=== PATIENT | male | born 1955 | race Caucasian/White ===

== ENCOUNTER 2021-09-23 20:19 | Inpatient (IN) ==
[2021-09-23 21:08] LABS: Basophils # (auto) 0.03 K/uL (0-0.2); Basophils % (auto) 0.3 %; Eosinophils # (auto) 0.08 K/uL (0-0.50); Eosinophils % (auto) 0.8 %; Hematocrit (blood only) 33.1 % (40.1-51.0); Hemoglobin 10.7 g/dl (14.0-18.0); Immature Granulocytes # (auto) 0.05 K/uL (0.00-0.02); Immature Granulocytes % (auto) 0.5 %; Lymphocytes # (auto) 0.86 K/uL (1.2-3.4); Lymphocytes % (auto) 8.8 %; Mean Corpuscular Hemoglobin 30.9 pg (25.0-34.0); Mean Corpuscular Hgb Conc 32.3 g/dL (32.0-36.0); Mean Corpuscular Volume 95.7 fL (80.0-100.0); Mean Platelet Volume 9.7 fL (9.4-12.4); Monocytes # (auto) 1.02 K/uL (0.24-0.82); Monocytes % (auto) 10.4 %; Neutrophils # (auto) 7.73 K/uL (1.4-6.5); Neutrophils % (auto) 79.2 %; Platelet Count 331 K/uL (130-400); RDW Coefficient of Variation 15.1 % (11.5-14.5); RDW Standard Deviation 53.4 fL (36.4-46.3); Red Blood Count 3.46 M/uL (4.63-6.08); White Blood Count 9.77 K/ul (4.8-10.8)
[2021-09-23 21:18] LABS: Troponin I High Sensitivity 3.1 pg/ml (0-20)
[2021-09-23 21:48] LABS: Albumin Globulin Ratio 1.1 (0.9-2); Albumin Level 3.5 gm/dl (3.4-5.0); BUN Creatinine Ratio 13.6 (10-20); Bilirubin,Total 0.5 mg/dl (0.2-1.0); Calcium 9.1 mg/dl (8.5-10.1); Creatinine Clr Calc Pharmacy 91.5 ml/min; Est GFR (African American) 108.9 ml/min; Est GFR (Non-African American) 93.9 ml/min; Globulin 3.1 gm/dl (2.5-4.0); Magnesium 1.7 mg/dl (1.7-2.4); Potassium 3.4 mmol/L (3.5-5.1); Total Protein 6.6 gm/dl (6.0-8.3)
[2021-09-23] MEDS ORDERED: SODIUM CHLORIDE 0.9% 1000ML 500 ML IV ONE (22:17)
[2021-09-23] MEDS ORDERED: SODIUM CHLORIDE 0.9% 1000ML 1,000 ML IV STA (22:17)
[2021-09-23 22:33] LABS: INR 1.1 (0.9-1.1); Prothrombin Time 11.8 Seconds (9.0-12.0)
[2021-09-24] MEDS ORDERED: PANTOprazole 40 MG in SYRINGE 0 ML IV ONE (00:17)
--- NOTE | 2021-09-24 00:28 | Emergency Department Note ---
Impression & Plan Syncope and collapse, Malignant neoplasm of lower third of esophagus, Acute GI bleeding ED Provider Note INFORMANT: Patient ED PROVIDER(S): Srinivas Mancia MD CHIEF COMPLAINT: Syncope PLAN: Disposition: Admitted Condition: Good Outpatient prescription management: none Referral: None MEDICAL DECISION MAKING: Patient presented because of syncopal episode x2. He also had bright red bloody bowel movement. He did not have any pain or significant vagal symptoms prior to the episode. A work-up was initiated. His monitoring did not reveal any gross abnormalities. ECG was unremarkable. Patient had a mild anemia on CBC. Chemistry panel was unremarkable. CT imaging of the head was negative. Patient will need further management in the hospital. He was hydrated and given Proton ix. [facility]. Patient was evaluated in the ER for further management Triage Nursing notes reviewed and agree them. Vital Signs: reviewed and remarkable for no significant abnormalities Differential diagnosis: GI bleed, vasovagal event, dehydration, infection, hypoglycemia, electrolyte abnormalities, cardiac sources, intracerebral event, pulmonary embolism, seizure, toxicologic, neurologic, as well as other pathologies. Diagnostics interpreted by me: ECG: Twelve-lead ECG reveals sinus rhythm at 100 bpm. There is PVCs present. No ST elevation or depression. Cardiac Monitoring: Cardiac monitoring ordered by me: The patient was placed on continuous cardiac monitoring and observed. It revealed a normal sinus rhythm a t 86 beats per minute without ectopy or evidence of dysrhythmia. Imaging studies: Head CT: A noncontrast CT scan of the head was performed and was negative for tumor, fracture, intracranial hemorrhage, or other acute pathology. CT scan of the abdomen pelvis reveals material in the stomach concerning for blood per radiology. No signs of diverticulitis. No inflammatory changes of the bowel. I refer you to the EMR for further details. HPI: The patient is a 66 year old male who presents to the Emergency Room with complaints of syncope x2. This started this evening and is a new problem for the patient. The patient also notes the following associated symptoms, bright red blood per rectum x1 tonight, mild epigastric abdominal pain, and a mild headache in the posterior aspect as he struck his head when he fell. The patient has taken no medication for relieving factors. Current pain is rated as 4/10. Patient has history of esophageal cancer. He noted 1 episode of dark stool several weeks ago but notes normal color bowel movements recently. Pt denies fevers, chills, diaphoresis, visual changes, neck pain, chest pain, breathing difficulties, nausea, vomiting, abdominal pain, back pain, urinary symptoms, numbness, weakness, lymphadenopathy, rash, or other complaints. ROS: See above HPI for pertinent positives & negatives. A total of 10 systems reviewed and were otherwise negative. PAST MEDICAL HISTORY:See Below , esophageal cancer PAST SURGICAL HISTORY:See Below, FAMILY HISTORY:See Below SOCIAL HISTORY:See Below, quit smoking HOME MEDICATIONS:See Below ALLERGIES:See Below VITALS:See Below PHYSICAL EXAMINATION: GENERAL: Awake, alert, well-appearing, in no distress HENT: Normocephalic, small occipital contusion noted. No lacerations. Oropharynx unremarkable. EYES: Normal conjunctiva. Sclera non-icteric. NECK: Inspection normal. Non-tender. Supple. No nuchal rigidity. FROM. No masses. RESPIRATORY: Clear to auscultation. No wheezes. No rales. Normal respiratory effort. CARDIAC: Normal rate. Normal rhythm. No murmurs. No rubs. Extremities warm and well perfused. Pulses equal. No JVD. GI: Soft, non-distended. Minimal epigastric tenderness to palpation. No rebound or guarding. No masses. RECTAL: Deferred. MUSCULOSKELETAL: Atraumatic. Chest examination reveals no tenderness. The back is symmetrical on inspection without obvious abnormality. There is no CVA tenderness to palpation. No joint edema. LOWER EXTREMITIES: Calves are equal size bilaterally and non-tender. No edema. No discoloration. NEURO: Normal sensorium. No sensory or motor deficits noted. SKIN: No rash or jaundice noted. Srinivas Mancia MD Past Med/Surg History Medical History (Updated 09/24/21 @ 00:28 by Srinivas Mancia MD) Allergic rhinitis Benign neoplasm of colon Dyslipidemia Malignant neoplasm of lower third of esophagus Obesity TMJ click Surgical History (Updated 04/05/21 @ 13:23 by Ree Lucas RN) History of esophagogastroduodenoscopy (EGD) Hx of colonoscopy Hx of tonsillectomy Family History (Updated 04/05/21 @ 13:24 by Ree Lucas RN) Brother Prostate cancer Mother Cancer Ovarian Father Heart disease Social History (Updated 04/05/21 @ 13:31 by Ree Lucas RN) Smoking Status: Former smoker Cigarettes Per Day: alternated chewing snuff and cigarettes since age 23; Hx Alcohol Use: No Hx Substance Use: No Preferred Language: Turkmen Communication Ability: Effective Visual Impairment: No Limitations Hearing Ability: Normal 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 Beliefs That Will Affect Care: None marital status: Current Living Situation: Spouse current occupational status: employed 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 Feels Safe at Home: Yes Diet Comment: softer foods, tolerates liquids better during the past year weight has: decreased > 10 lbs Physical Activity Frequency: Does not Exercise Assistive Devices: Glasses Allergies Allergies Allergy/AdvReac Type Severity Reaction Status Date / Time No Known Allergies Allergy Verified 09/23/21 21:53 Home Meds Home Medications Medication Instructions Recorded Confirmed empagliflozin 10 mg tablet 10 mg PO DAILY PRN Hyperglycemia 05/09/21 09/23/21 (Jardiance) multivitamin 1 tab PO DAILY 09/23/21 09/23/21 Results & Data (ED) Vital Signs Vital Signs - 24 hr 09/23/21 20:33 09/23/21 20:52 09/23/21 23:01 Pulse Rate 96 H Pulse Rate [Right Finger] Respiratory Rate 18 16 Respiratory Effort / Characteristics Non-Labored Non-Labored Respiratory Depth Normal Normal Blood Pressure 137/100 Blood Pressure [Right Arm] 137/100 Blood Pressure Mean 112 Blood Pressure Mean [Right Arm] 112 Blood Pressure Position [Right Arm] Pulse Oximetry 100 100 99 Oxygen Delivery Method Room Air Room Air Room Air Sepsis Recent Fever Within 48 Hours No Sepsis New/Unexplained Change in Mental Status No Sepsis Action Taken by Nursing No Action Required 09/23/21 23:01 09/23/21 23:06 09/24/21 01:16 Pulse Rate 84 Pulse Rate [Right Finger] 86 93 H Respiratory Rate 18 17 17 Respiratory Effort / Characteristics Non-Labored Spontaneous Non-Labored Spontaneous Respiratory Depth Normal Normal Blood Pressure Blood Pressure [Right Arm] 127/92 119/74 Blood Pressure Mean Blood Pressure Mean [Right Arm] 103 89 Blood Pressure Position [Right Arm] Sitting Lying Pulse Oximetry 99 98 97 Oxygen Delivery Method Room Air Room Air Room Air Sepsis Recent Fever Within 48 Hours Sepsis New/Unexplained Change in Mental Status Sepsis Action Taken by Nursing Laboratory Data Result diagrams: 09/23/21 20:39 09/23/21 20:39 Lab Results 09/23/21 09/23/21 09/23/21 Range/Units 20:39 20:39 20:39 WBC 9.77 (4.8-10.8) K/ul RBC 3.46 L (4.63-6.08) M/uL Hgb 10.7 L (14.0-18.0) g/dl Hct 33.1 L (40.1-51.0) % MCV 95.7 (80.0-100.0) fL MCH 30.9 (25.0-34.0) pg MCHC 32.3 (32.0-36.0) g/dL RDW Std Deviation 53.4 H (36.4-46.3) fL RDW Coeff of Olimpia 15.1 H (11.5-14.5) % Plt Count 331 (130-400) K/uL MPV 9.7 (9.4-12.4) fL Immature Gran % (Auto) 0.5 % Neut % (Auto) 79.2 % Lymph % (Auto) 8.8 % [place] % (Auto) 10.4 % Eos % (Auto) 0.8 % Baso % (Auto) 0.3 % Neut # (Auto) 7.73 H (1.4-6.5) K/uL Lymph # (Auto) 0.86 L (1.2-3.4) K/uL [place] # (Auto) 1.02 H (0.24-0.82) K/uL Eos # (Auto) 0.08 (0-0.50) K/uL Baso # (Auto) 0.03 (0-0.2) K/uL Immature Gran # (Auto) 0.05 H (0.00-0.02) K/uL PT (9.0-12.0) Seconds INR (0.9-1.1) Sodium 138 (136-145) mmol/L Potassium 3.4 L (3.5-5.1) mmol/L Chloride 103 (98-107) mmol/L Carbon Dioxide 22 (21-32) mmol/L Anion Gap 13 H (3-11) BUN 11 (6-23) mg/dl Creatinine 0.81 (0.6-1.4) mg/dl Est Cr Clr Drug Dosing 91.5 ml/min Est GFR ( Amer) 108.9 ml/min Est GFR (Non-Af Amer) 93.9 ml/min BUN/Creatinine Ratio 13.6 (10-20) Glucose 171 H (70-99(Fasting)) mg/dl Calcium 9.1 (8.5-10.1) mg/dl Magnesium 1.7 (1.7-2.4) mg/dl Total Bilirubin 0.5 (0.2-1.0) mg/dl AST 23 (13-39) U/L ALT 18 (7-52) U/L Alkaline Phosphatase 64 (34-104) U/L Troponin I High Sens 3.1 (0-20) pg/ml Total Protein 6.6 (6.0-8.3) gm/dl Albumin 3.5 (3.4-5.0) gm/dl Globulin 3.1 (2.5-4.0) gm/dl Albumin/Globulin Ratio 1.1 (0.9-2) TSH 2.125 (0.300-4.500) uIu/ml SARS-CoV-2, RNA, NAAT (NEGATIVE) Blood Type Antibody Screen 09/23/21 09/23/21 09/23/21 Range/Units 20:39 20:39 22:23 WBC (4.8-10.8) K/ul RBC (4.63-6.08) M/uL Hgb (14.0-18.0) g/dl Hct (40.1-51.0) % MCV (80.0-100.0) fL MCH (25.0-34.0) pg MCHC (32.0-36.0) g/dL RDW Std Deviation (36.4-46.3) fL RDW Coeff of Olimpia (11.5-14.5) % Plt Count (130-400) K/uL MPV (9.4-12.4) fL Immature Gran % (Auto) % Neut % (Auto) % Lymph % (Auto) % [place] % (Auto) % Eos % (Auto) % Baso % (Auto) % Neut # (Auto) (1.4-6.5) K/uL Lymph # (Auto) (1.2-3.4) K/uL [place] # (Auto) (0.24-0.82) K/uL Eos # (Auto) (0-0.50) K/uL Baso # (Auto) (0-0.2) K/uL Immature Gran # (Auto) (0.00-0.02) K/uL PT 11.8 (9.0-12.0) Seconds INR 1.1 (0.9-1.1) Sodium (136-145) mmol/L Potassium (3.5-5.1) mmol/L Chloride (98-107) mmol/L Carbon Dioxide (21-32) mmol/L Anion Gap (3-11) BUN (6-23) mg/dl Creatinine (0.6-1.4) mg/dl Est Cr Clr Drug Dosing ml/min Est GFR ( Amer) ml/min Est GFR (Non-Af Amer) ml/min BUN/Creatinine Ratio (10-20) Glucose (70-99(Fasting)) mg/dl Calcium (8.5-10.1) mg/dl Magnesium (1.7-2.4) mg/dl Total Bilirubin (0.2-1.0) mg/dl AST (13-39) U/L ALT (7-52) U/L Alkaline Phosphatase (34-104) U/L Troponin I High Sens (0-20) pg/ml Total Protein (6.0-8.3) gm/dl Albumin (3.4-5.0) gm/dl Globulin (2.5-4.0) gm/dl Albumin/Globulin Ratio (0.9-2) TSH (0.300-4.500) uIu/ml SARS-CoV-2, RNA, NAAT NEGATIVE (NEGATIVE) Blood Type A Positive Antibody Screen NEGATIVE Administered Medications Sodium Chloride (Nss 1000ml) 1,000 mls @ 125 mls/hr IV .Q8H STA Stop: 09/24/21 06:16 Last Admin: 09/24/21 00:55 Dose: 125 mls/hr Documented By: CC Discontinued Medications Sodium Chloride (Nss 1000ml) 500 mls @ 999 mls/hr IV .Q31M ONE Stop: 09/23/21 22:47 Last Infusion: 09/24/21 01:13 Dose: 0 mls/hr Documented By: Admin: 09/23/21 22:27 Dose: 999 mls/hr Documented By: MES Pantoprazole Sodium 40 mg/ (Syringe) 10 mls @ 5 mls/min IV NOW ONE Stop: 09/24/21 00:18 Last Admin: 09/24/21 01:12 Dose: Not Given Documented By: CC Pantoprazole Sodium (Protonix Bolus/Drip) 0 mls @ 1 mls/hr IV ONE STA Stop: 09/24/21 00:34 Last Admin: 09/24/21 00:50 Dose: Not Given Documented By: CC Pantoprazole Sodium 80 mg/ (Dextrose) 120 mls @ 400 mls/hr IV NOW ONE Stop: 09/24/21 00:50 Last Admin: 09/24/21 01:06 Dose: 400 mls/hr Documented By: CC Famotidine (Pepcid 20mg Iv Push) 20 mg in 5 mls @ 2.5 mls/min IV NOW STA Stop: 09/24/21 00:40 Last Admin: 09/24/21 01:03 Dose: 2.5 mls/min Documented By: CC Discharge Plan Visit Data Chief Complaint: Syncope Stated Complaint: SYNCOPAL EVENT, DIZZY, WEAKNESS ED Provider: Srinivas Mancia Discharge Problem: Syncope and collapse, Malignant neoplasm of lower third of esophagus, Acute GI bleeding Forms Stand Alone Forms: [employer] Prescriptions Prescriptions: No Action Jardiance 10 mg tablet 10 mg PO DAILY PRN (Reason: Hyperglycemia) Rx Instructions: pt holds for normal blood sugars multivitamin [Multiple Vitamin] Tablet 1 tab PO DAILY Referrals Referrals: Zac Bonilla DO [Primary Care Provider] -
[2021-09-24] MEDS ORDERED: PANTOPRAZOLE BOLUS/DRIP 1 EACH IV STA (00:33)
[2021-09-24] MEDS ORDERED: PANTOprazole 80 MG in DEXTROSE 5% 100 ML IV ONE (00:33)
[2021-09-24] MEDS ORDERED: FAMOTIDINE 20MG IV PUSH 20 MG/5 ML SYR IV STA (00:39)
[2021-09-24] MEDS ORDERED: PANTOprazole 40 MG in DEXTROSE 5% 100 ML IV SCH (01:00)
[2021-09-24 01:40] LABS: Appearance Urine Clear (Clear); Bacteria Urine Automated Negative (Negative); Bilirubin Urine Negative (Negative); Blood Urine Negative (Negative); Color Urine Dark Yellow; Epithelial Cell Urine Auto 20-30 /lpf (0-5); Glucose Urine UA Negative (Negative); Ketones Urine 2+ (Negative); Leukocyte Esterase Urine Negative (Negative); Nitrite Urine Negative (Negative); Protein Urine Trace (Negative); RBC Urine Automated 0-4 /hpf (0-4); Specific Gravity Urine 1.023 (1.000-1.030); Urobilinogen Urine Negative (Negative); pH Urine 5.5 (4.5-7.5)
[2021-09-24] MEDS ORDERED: POTASSIUM CHLORIDE 20 MEQ/15 ML UDC PO STA (02:55)
[2021-09-24] MEDS ORDERED: NITROGLYCERIN SL 0.4 MG/TAB TAB SL PRN (03:34)
[2021-09-24] MEDS ORDERED: SODIUM CHLORIDE 0.9% 1000ML 1,000 ML IV SCH (03:34)
[2021-09-24] MEDS ORDERED: ACETAMINOPHEN 325 MG TAB PO PRN (03:34)
[2021-09-24] MEDS ORDERED: GLUCOSE 10 TAB/TUBE PO PRN (03:45)
[2021-09-24] MEDS ORDERED: DEXTROSE 50% 50 ML SYRINGE IV PRN (03:45)
[2021-09-24] MEDS ORDERED: CARBOHYDRATES FOR HYPOGLYCEMIA PO PRN (03:45)
[2021-09-24] MEDS ORDERED: GLUCAGON FOR INJ 1 MG VIAL IM PRN (03:45)
[2021-09-24] MEDS ORDERED: GLUCOSE 40% GEL 15 GM TUBE PO PRN (03:45)
[2021-09-24 05:23] LABS: Basophils # (auto) 0.02 K/uL (0-0.2); Basophils % (auto) 0.3 %; Eosinophils # (auto) 0.02 K/uL (0-0.50); Eosinophils % (auto) 0.3 %; Hematocrit (blood only) 28.8 % (40.1-51.0); Hemoglobin 9.1 g/dl (14.0-18.0); Immature Granulocytes # (auto) 0.02 K/uL (0.00-0.02); Immature Granulocytes % (auto) 0.3 %; Lymphocytes # (auto) 0.52 K/uL (1.2-3.4); Lymphocytes % (auto) 8.8 %; Mean Corpuscular Hemoglobin 30.3 pg (25.0-34.0); Mean Corpuscular Hgb Conc 31.6 g/dL (32.0-36.0); Mean Platelet Volume 9.5 fL (9.4-12.4); Monocytes # (auto) 0.79 K/uL (0.24-0.82); Monocytes % (auto) 13.3 %; Neutrophils # (auto) 4.55 K/uL (1.4-6.5); Platelet Count 258 K/uL (130-400); RDW Standard Deviation 52.9 fL (36.4-46.3); White Blood Count 5.92 K/ul (4.8-10.8)
[2021-09-24 05:56] LABS: BUN Creatinine Ratio 23.1 (10-20); Calcium 8.6 mg/dl (8.5-10.1); Est GFR (African American) 119.2 ml/min; Est GFR (Non-African American) 102.8 ml/min; Magnesium 1.7 mg/dl (1.7-2.4); Potassium 3.7 mmol/L (3.5-5.1)
--- NOTE | 2021-09-24 06:08 | History and Physical Report ---
DATE OF ADMISSION: 09/24/2021. CHIEF COMPLAINT: Syncope and GI bleed. 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 The patient states he was going to the bathroom, and in the bathroom he felt dizzy and passed out for a few seconds. He came out and laid on the bed and went to bathroom again and he passed out again for brief moments. No confusion. After that, he had an episode of bowel movement when he initially noticed black and red clot, then after that he had a total of three episodes of watery bloody bowel movements, which prompted him to come to the ER. His hemoglobin is stable at 10.7. He says since he was diagnosed of cancer, he has some epigastric discomfort. He feels his stomach is full easily, not able to eat much. Mostly eats soft food. Denies any chest pain, no shortness of breath, no cough, no headache. Once in a while he gets neck pain, once in a while he gets back pain. No blurred visions, no runny nose, no sore throat. Since his diagnosis of cancer, he has difficulty to burp, difficulty to bring mucous out sometimes. Normal bladder movements. No swelling in the legs. Currently, hemodynamically stable. ALLERGIES: No known drug allergies. PAST MEDICAL HISTORY: As mentioned above. PAST SURGICAL HISTORY: Colonoscopy, EGD, EGD with endoscopic ultrasound, humeral fracture repair, knee arthroscopy, removal of nasal polyps. MEDICATIONS: Currently on empagliflozin 10 mg p.o. daily p.r.n. for hyperglycemia, multivitamin tablet daily. FAMILY HISTORY: Significant for brother had prostate cancer, hypertension; mother has ovarian cancer; father had stroke at the age of 69. SOCIAL HISTORY: , former smoker, smoked half pack a day for 6 years, quit in 2016. Currently, not drinking alcohol. Currently, no drug use. REVIEW OF SYSTEMS: As per HPI. Rest of the review of systems is negative. PHYSICAL EXAMINATION: GENERAL: The patient is of moderate build, not in acute distress. VITAL SIGNS: Temperature afebrile, pulse 93, respiratory rate 17, blood pressure 119/74, oxygen 97% on room air. HEENT: Pupils equal, round, and reactive to light. Oral mucosa moist. NECK: No JVD, no neck masses. CARDIOVASCULAR: S1 and S2 heard. Regular rate and rhythm. No murmur, no gallop. RESPIRATORY SYSTEM: Normal AP diameter. No accessory muscle use. No wheezing, no crackles. ABDOMEN: Soft, bowel sounds present. Mild epigastric discomfort. No guarding, no rigidity, no distention. CENTRAL NERVOUS SYSTEM: Cranial nerves II-XII grossly intact, nonfocal. EXTREMITIES: No edema, no erythema. LABORATORY DATA: WBC 9.7, hemoglobin 10.7, hematocrit 33.1, platelets 331. PT 11.8, INR 1.1. Sodium 138, potassium 3.4, chloride 103, bicarbonate 22, BUN 11, creatinine 0.8, serum glucose 171, calcium 9.1, magnesium 1.7, total bilirubin 0.5, AST 23, ALT 18, alkaline phosphatase 64. Troponin 1 high sensitivity 3.1. TSH 2.2. Urinalysis negative. SARS-CoV-2 rapid test negative. IMAGING DATA: CT of the head, preliminary report, no acute findings. CT of the abdomen and pelvis, preliminary report, the stomach is partially distended with hyperdense material suspicious of blood, the bowel loops are nondilated, the appendix is normal. Moderate diverticulosis of sigmoid colon without signs of acute diverticulitis. No acute inflammatory changes seen involving the bowel. Chest x-ray, no acute findings. EKG: Sinus rhythm with occasional PVCs at a rate of 100, no acute ST changes seen. ASSESSMENT AND PLAN: This 66-year-old male presents with syncope and gastrointestinal bleed. 1. Syncope, could be from the gastrointestinal bleed: Will monitor in the tele floor. Will get an echo. . Follow the repeat troponin. When stable we can check orthostatics. Getting fluids. Closely monitor. 2. Gastrointestinal bleed: Blood per rectum has also question of melena and also CAT scan shows possible blood in the stomach, History of distal esophageal cancer: Status post radiation and chemo. ER started on Protonix today, which will be continued. Hemoglobin is stable at 10.7. Will follow H and H q. 6 hours. Blood consent obtained, n.p.o., IV fluids, GI consult in a.m. 3.. History of distal esophageal adenocarcinoma, status post chemoradiation: Further management as per hem/onc. 4. Diabetes: On empagliflozin as needed. Will place on insulin sliding scale. 5. Hypertension: Seems to be on lisinopril as per epic.. Will monitor the blood pressure. 6. Deep venous thrombosis prophylaxis: Sequential compression devices for now. DISPOSITION: Closely monitor in the tele floor. Level 1 full code. Expect to discharge home and follow up with family doctor. Job ID: [id number] [facility] CENTERSukhwinder
[2021-09-24] MEDS: PANTOprazole 40 MG in DEXTROSE 5% 100 ML IV SCH ×4 (06:25→23:31)
--- NOTE | 2021-09-24 07:07 | XRay Report ---
SINGLE VIEW CHEST CLINICAL HISTORY: Syncope. FINDINGS: 2 AP, portable, upright chest radiographs are correlated with PET/CT dated 03/23/2021. The c ardiomediastinal silhouette is unremarkable noting atherosclerotic calcification of the thoracic aort a. The lungs and pleural spaces are clear. No pneumothorax is seen. The skeletal structures appear os teopenic. The bony thorax is grossly intact. IMPRESSION: No active disease in the chest. ACT 112: Negative or not required by law. Electronically signed by: Peter Noel M.D. 09/24/2021 7:06 AM
--- NOTE | 2021-09-24 07:11 | CT Scan Report ---
HEAD CT NONCONTRAST CT DOSE: HISTORY: fall TECHNIQUE: Multiaxial CT images of the head were performed without the use of intravenous contrast. A utomated exposure control was utilized for this study. A dose lowering technique was utilized adheri ng to the principles of ALARA. Comparison: None. Findings: The paranasal sinuses and mastoid air cells are clear. The calvarium and skull base are int act. The ventricles and sulci are within normal limits. There is no mass, hematoma, midline shift, or acute infarct. Impression: No acute intracranial abnormality. ACT 112: Negative or not required by law. Electronically signed by: Naresh Villalpando M.D. 09/24/2021 7:10 AM
--- NOTE | 2021-09-24 08:11 | CT Scan Report ---
CT SCAN OF THE ABDOMEN AND PELVIS WITHOUT IV CONTRAST CLINICAL HISTORY: Syncope. GI bleeding. History of esophageal cancer. COMPARISON STUDY: PET/CT dated 03/23/2021. TECHNIQUE: CT scan of the abdomen and pelvis is performed from the lung bases to the proximal femora. Images are reviewed in the axial, sagittal, and coronal planes. IV contrast was not administered for this examination. Note that the examination is suboptimal without oral and IV contrast. A dose lower ing technique was utilized adhering to the principles of ALARA. CT DOSE: 1042.27 mGy.cm FINDINGS: Lung bases: The heart is normal in size and without pericardial effusion. The lung bases are clear no ting dependent scarring/atelectasis. There is a small to moderate hiatal hernia. There is wall thicke elizabeth with surrounding infiltration identified at the gastroesophageal junction, possibly correspondin g to the patient's reported history of esophageal cancer. Liver: The unenhanced liver is normal in size, contour, and attenuation. There is no intrahepatic kathy iary ductal dilatation. There are at least 3 low attenuation hepatic lesions measure up to 2.5 cm. Th eliot were not seen on 03/23/2021 and are highly suspicious for metastatic disease. These are best seen on axial images #67, #91 common and #136. Gallbladder: Unremarkable. Spleen: Normal in size and attenuation. Pancreas: The unenhanced pancreas is moderately atrophic. Mild infiltration and fluid is seen adjacen t to the pancreatic body and tail. Adrenal glands: Unremarkable. Kidneys: The unenhanced kidneys are normal in size and without hydronephrosis. There are no renal janessa culi identified. There is no evidence of contour deforming renal mass lesion. Abdominal vasculature: The abdominal aorta is normal in course and caliber noting mild to moderate at herosclerotic calcification. Bowel: Hyperdense material distends the stomach, likely resenting blood clots. The gastric wall appea rs thickened and there is mild perigastric inflammation. There is moderate sigmoid diverticulosis wit hout CT evidence of acute diverticulitis. No bowel obstruction is seen. The appendix is well-visuali zed and normal. Peritoneum: Trace free fluid is noted in the pelvis. No intraperitoneal free air is identified. Lymphadenopathy: There are likely mildly enlarged gastric hepatic lymph nodes which measure up to 11 mm in short axis is difficult to assess due to surrounding inflammation and lack of IV contrast. Pelvic viscera: The prostate gland is mildly enlarged and heterogeneous. The bladder is normal as vis ualized. Skeletal structures: The skeletal structures are osteopenic. There is mild lumbosacral spondylosis. N o lytic or blastic lesions are seen. IMPRESSION: 1. There is wall thickening at the gastroesophageal junction with surrounding inflammation, likely co rresponding to the patient's known esophageal carcinoma. 2. Hyperdense material distends the stomach, typical appearance for blood clots. The gastric wall hina ears mildly thickened and there is mild perigastric infiltration. This could be related to the patien t's esophageal carcinoma. Hemorrhagic gastritis or possibly underlying ulcer disease could also have this appearance. Endoscopy could be considered for further evaluation. 3. Mildly enlarged gastrohepatic nodes likely represent metastatic disease. 4. There are new hepatic lesions which are highly suspicious for metastatic disease. 5. There is mild infiltration and fluid adjacent to the pancreatic body/tail. This may be related to adjacent gastric inflammation. Correlate with serum amylase/lipase levels for evidence of pancreatiti s. 6. Sigmoid diverticulosis without CT evidence of acute diverticulitis. 7. Additional findings as above. ACT 112: Negative or not required by law. Electronically signed by: Petre Noel M.D. 09/24/2021 8:09 AM
[2021-09-24 08:23] LABS: Estimated Average Glucose 105 mg/dl; Hemoglobin A1C 5.3 % (4.5-5.6)
[2021-09-24] MEDS: INSULIN ASPART PER UNIT SC SCH ×5 (08:34→23:44)
--- NOTE | 2021-09-24 09:54 | Anesthesiology Consultation ---
Date of Service September 24, 2021 Assessment & Plan (1) Encounter for pre-operative examination: Chart Review Chart Review: entry level chemist initiated History Surgery Operation Date: 09/24/21 11:00 Proposed Procedures p EGD EMR Sumeet - Alis Fay MD Height/Weight Height: 5 ft 11 in Weight: 70.2 kg Allergies Allergy/AdvReac Type Severity Reaction Status Date / Time No Known Allergies Allergy Verified 09/23/21 21:53 Medications Home Medications Medication Instructions Recorded Confirmed Last Taken empagliflozin 10 mg tablet 10 mg PO DAILY PRN Hyperglycemia 05/09/21 09/23/21 Unknown (Jardiance) multivitamin 1 tab PO DAILY 09/23/21 09/23/21 09/23/21 Active Medications Generic Name Dose Route Start Last Admin Trade Name Freq PRN Reason Stop Dose Admin Pantoprazole Sodium 40 mg/ 100 mls @ 20 mls/hr 09/24/21 06:30 09/24/21 06:25 Dextrose IV 10/24/21 06:29 8 mg/hr Q5H MAXI 20 mls/hr Administration 8 MG/HR Insulin Aspart 0 units 09/24/21 07:30 09/24/21 08:34 Insulin Aspart Per Unit SC 10/24/21 07:29 Not Given ACHS MAXI Past Medical History Medical History Allergic rhinitis Benign neoplasm of colon Dyslipidemia Malignant neoplasm of lower third of esophagus Obesity TMJ click Past Family History Family History Brother Prostate cancer Mother Cancer Ovarian Father Heart disease Past Surgical History Surgical History History of esophagogastroduodenoscopy (EGD) Hx of colonoscopy Hx of tonsillectomy Social History Smoking Status: Former smoker Smoking cigarettes per day: alternated chewing snuff and cigarettes since age 23 Hx Alcohol Use: No Hx Substance Use: No Physical Exam Vital Signs Last Vital Signs Pulse 77 09/24/21 07:00 Resp 18 09/24/21 07:00 BP 115/94 09/24/21 07:00 Pulse Ox 98 09/24/21 07:00 O2 Del Method 09/24/21 04:06 Testing Laboratory Results 09/24/21 04:56 09/24/21 04:56 PT 11.8 Seconds (9.0-12.0) 09/23/21 20:39 INR 1.1 (0.9-1.1) 09/23/21 20:39 Hemoglobin A1c 5.3 % (4.5-5.6) 09/24/21 04:56 Urine Color Dark Yellow 09/24/21 01:00 Urine Appearance Clear (Clear) 09/24/21 01:00 Urine pH 5.5 (4.5-7.5) 09/24/21 01:00 Ur Specific [place] 1.023 (1.000-1.030) 09/24/21 01:00 Urine Protein Trace (Negative) H 09/24/21 01:00 Urine Glucose (UA) Negative (Negative) 09/24/21 01:00 Urine Ketones 2+ (Negative) H 09/24/21 01:00 Urine Nitrite Negative (Negative) 09/24/21 01:00 Ur Leukocyte Esterase Negative (Negative) 09/24/21 01:00 Urine WBC (Auto) 1-5 /hpf (0-5) 09/24/21 01:00 Urine RBC (Auto) 0-4 /hpf (0-4) 09/24/21 01:00 U Hyaline Cast (Auto) 5-10 /lpf (0-5) H 09/24/21 01:00 U Epithel Cells (Auto) 20-30 /lpf (0-5) H 09/24/21 01:00 Urine Bacteria (Auto) Negative (Negative) 09/24/21 01:00 Blood Type A Positive 09/23/21 20:39 Antibody Screen NEGATIVE 09/23/21 20:39 09/24/21 08:29 POC Glucose 95 Electrocardiogram Date: 09/23/21 Sinus rhythm with occasional Premature ventricular complexes, rate 100 bpm Otherwise normal ECG No previous ECGs available Chest X-Ray Date: 09/23/21 Findings: + NAD
--- NOTE | 2021-09-24 10:05 | Gastrointestinal Consultation ---
Date of Consultation September 24, 2021 Assessment & Plan (1) Acute GI bleeding: Likely bleeding from the esophageal tumor. Plan for EGD today. Discussed we may need an esophageal stent to control the bleeding and at the same time help his dysphagia and he agreed. IV PPI for now. Patient was explained in detail regarding risks, benefits, limitations and alternatives of the above endoscopic procedure. Risks of intravenous sedation used for procedure were also explained. Risks include, but not limited to perf oration, bleeding, infection, respiratory distress, cardiac arrest and . Patient is also aware about the possibility of missed lesion. Patient's questions were answered. The patient verbalized understanding the information and agreed to undergo the procedure. (2) Malignant neoplasm of lower third of esophagus: History of Present Illness Reason for Consultation: GI bleeding Attending Physician: Gerry Heller MD History of Present Illness 66 years old male patient with known esophageal adenocarcinoma of the distal esophagus, s/p Radiation and chemotherapy, follows with Oncology, last PET scan in 07/27 showed response to therapy, he saw surgical oncology and planned for esophagectomy however the patient declined, since then he is not on any treatment, presented now with dizziness and rectal bleeding, found to have anemia and CT scan suggestive of active upper GI bleeding, likely from the esophageal malignancy. New liver lesions ? mets. Reports worsening dysphagia, poor PO intake and inability to burp. Denies any fever or chills. Allergies Allergy/AdvReac Type Severity Reaction Status Date / Time No Known Allergies Allergy Verified 09/23/21 21:53 Home Medications Medication Instructions Recorded Confirmed Type empagliflozin 10 mg tablet 10 mg PO DAILY PRN Hyperglycemia 05/09/21 09/23/21 History (Jardiance) multivitamin 1 tab PO DAILY 09/23/21 09/23/21 History Patient History Medical History Allergic rhinitis Benign neoplasm of colon Dyslipidemia Malignant neoplasm of lower third of esophagus Obesity TMJ click Surgical History History of esophagogastroduodenoscopy (EGD) Hx of colonoscopy Hx of tonsillectomy Family History Brother Prostate cancer Mother Cancer Ovarian Father Heart disease Social History (Updated 04/05/21 @ 13:31 by Ree Lucas RN) Smoking Status: Former smoker Cigarettes Per Day: alternated chewing snuff and cigarettes since age 23; Hx Alcohol Use: No Hx Substance Use: No Preferred Language: Turkish Communication Ability: Effective Visual Impairment: No Limitations Hearing Ability: Normal Registered Nurse Cardiac Required: No Beliefs That Will Affect Care: None marital status: Current Living Situation: Spouse current occupational status: employed current occupation: [employer] Feels Safe at Home: Yes Diet Comment: softer foods, tolerates liquids better during the past year weight has: decreased > 10 lbs Physical Activity Frequency: Does not Exercise Assistive Devices: Glasses Review of Systems Eyes: no eye pain and no worsening vision Respiratory: no cough, no dyspnea, no dyspnea on exertion and no wheezing Cardiovascular: no chest pain, no orthopnea, no palpitations and no edema Gastrointestinal: as per Subjective / HPI Musculoskeletal: no stiffness and no myalgia Neurologic: no localized weakness, no paralysis, no tremor(s) and no headache(s) Endocrine: no polydipsia and no polyuria Hematologic / Lymphatic: no easy bleeding and no night sweats Physical Exam Constitutional: + well hydrated, cooperative and comfortable Eyes: PERRL, conjunctivae normal, anicteric sclerae ENMT: external ear and nose normal, oropharynx normal Neck: normal visual inspection and trachea midline Respiratory: normal respiratory effort, lungs clear to auscultation Auscultation: no wheezes Cardiovascular: RRR, no murmur, no edema Gastrointestinal (Abdomen): normal bowel sounds, soft, nontender, no hepatosplenomegaly Musculoskeletal: no cyanosis or clubbing, extremities motor strength 5/5 Skin: no rashes, warm and dry Neurologic: awake; no focal motor deficits Motor/Sensory: no tremor Results & Data ([facility]) Vital Signs (Past 12 Hours) Vital Signs Pulse Pulse Resp BP Pulse Ox O2 Del Method 09/24/21 07:00 77 18 115/94 98 09/24/21 04:06 79 16 130/81 97 Room Air 09/24/21 04:00 81 97 Room Air 09/24/21 03:13 78 17 128/78 98 Room Air 09/24/21 01:16 93 H 17 119/74 97 Room Air 09/23/21 23:06 86 17 127/92 98 Room Air 09/23/21 23:01 84 18 99 Room Air 09/23/21 23:01 99 Room Air Laboratory Results Laboratory Results - last 24 hr 09/23/21 09/23/21 09/23/21 20:39 20:39 20:39 WBC 9.77 RBC 3.46 L Hgb 10.7 L Hct 33.1 L MCV 95.7 MCH 30.9 MCHC 32.3 RDW Std Deviation 53.4 H RDW Coeff of [place] 15.1 H Plt Count 331 MPV 9.7 Immature Gran % (Auto) 0.5 Neut % (Auto) 79.2 Lymph % (Auto) 8.8 [place] % (Auto) 10.4 Eos % (Auto) 0.8 Baso % (Auto) 0.3 Neut # (Auto) 7.73 H Lymph # (Auto) 0.86 L [place] # (Auto) 1.02 H Eos # (Auto) 0.08 Baso # (Auto) 0.03 Immature Gran # (Auto) 0.05 H PT INR Sodium 138 Potassium 3.4 L Chloride 103 Carbon Dioxide 22 Anion Gap 13 H BUN 11 Creatinine 0.81 Est Cr Clr Drug Dosing 91.5 Est GFR ( Amer) 108.9 Est GFR (Non-Af Amer) 93.9 BUN/Creatinine Ratio 13.6 Glucose 171 H POC Glucose Estimat Average Glucose Hemoglobin A1c Calcium 9.1 Magnesium 1.7 Total Bilirubin 0.5 AST 23 ALT 18 Alkaline Phosphatase 64 Troponin I High Sens 3.1 Total Protein 6.6 Albumin 3.5 Globulin 3.1 Albumin/Globulin Ratio 1.1 TSH 2.125 Urine Color Urine Appearance Urine pH Ur Specific [place] Urine Protein Urine Glucose (UA) Urine Ketones Urine Blood Urine Nitrite Urine Bilirubin Urine Urobilinogen Ur Leukocyte Esterase Urine WBC (Auto) Urine RBC (Auto) U Hyaline Cast (Auto) U Epithel Cells (Auto) Urine Bacteria (Auto) SARS-CoV-2, RNA, NAAT Blood Type Antibody Screen 09/23/21 09/23/21 09/23/21 20:39 20:39 22:23 WBC RBC Hgb Hct MCV MCH MCHC RDW Std Deviation RDW Coeff of [place] Plt Count MPV Immature Gran % (Auto) Neut % (Auto) Lymph % (Auto) [place] % (Auto) Eos % (Auto) Baso % (Auto) Neut # (Auto) Lymph # (Auto) [place] # (Auto) Eos # (Auto) Baso # (Auto) Immature Gran # (Auto) PT 11.8 INR 1.1 Sodium Potassium Chloride Carbon Dioxide Anion Gap BUN Creatinine Est Cr Clr Drug Dosing Est GFR ( Amer) Est GFR (Non-Af Amer) BUN/Creatinine Ratio Glucose POC Glucose Estimat Average Glucose Hemoglobin A1c Calcium Magnesium Total Bilirubin AST ALT Alkaline Phosphatase Troponin I High Sens Total Protein Albumin Globulin Albumin/Globulin Ratio TSH Urine Color Urine Appearance Urine pH Ur Specific [place] Urine Protein Urine Glucose (UA) Urine Ketones Urine Blood Urine Nitrite Urine Bilirubin Urine Urobilinogen Ur Leukocyte Esterase Urine WBC (Auto) Urine RBC (Auto) U Hyaline Cast (Auto) U Epithel Cells (Auto) Urine Bacteria (Auto) SARS-CoV-2, RNA, NAAT NEGATIVE Blood Type A Positive Antibody Screen NEGATIVE 09/24/21 09/24/21 09/24/21 01:00 04:56 04:56 WBC 5.92 RBC 3.00 L Hgb 9.1 L Hct 28.8 L MCV 96.0 MCH 30.3 MCHC 31.6 L RDW Std Deviation 52.9 H RDW Coeff of [place] 15.0 H Plt Count 258 MPV 9.5 Immature Gran % (Auto) 0.3 Neut % (Auto) 77.0 Lymph % (Auto) 8.8 [place] % (Auto) 13.3 Eos % (Auto) 0.3 Baso % (Auto) 0.3 Neut # (Auto) 4.55 Lymph # (Auto) 0.52 L [place] # (Auto) 0.79 Eos # (Auto) 0.02 Baso # (Auto) 0.02 Immature Gran # (Auto) 0.02 PT INR Sodium 140 Potassium 3.7 Chloride 109 H Carbon Dioxide 24 Anion Gap 7 BUN 15 Creatinine 0.65 Est Cr Clr Drug Dosing 114.0 Est GFR ( Amer) 119.2 Est GFR (Non-Af Amer) 102.8 BUN/Creatinine Ratio 23.1 H Glucose 103 H POC Glucose Estimat Average Glucose Hemoglobin A1c Calcium 8.6 Magnesium 1.7 Total Bilirubin AST ALT Alkaline Phosphatase Troponin I High Sens Total Protein Albumin Globulin Albumin/Globulin Ratio TSH Urine Color Dark Yellow Urine Appearance Clear Urine pH 5.5 Ur Specific [place] 1.023 Urine Protein Trace H Urine Glucose (UA) Negative Urine Ketones 2+ H Urine Blood Negative Urine Nitrite Negative Urine Bilirubin Negative Urine Urobilinogen Negative Ur Leukocyte Esterase Negative Urine WBC (Auto) 1-5 Urine RBC (Auto) 0-4 U Hyaline Cast (Auto) 5-10 H U Epithel Cells (Auto) 20-30 H Urine Bacteria (Auto) Negative SARS-CoV-2, RNA, NAAT Blood Type Antibody Screen 09/24/21 09/24/21 09/24/21 04:56 08:29 09:23 WBC RBC Hgb Hct MCV MCH MCHC RDW Std Deviation RDW Coeff of [place] Plt Count MPV Immature Gran % (Auto) Neut % (Auto) Lymph % (Auto) [place] % (Auto) Eos % (Auto) Baso % (Auto) Neut # (Auto) Lymph # (Auto) [place] # (Auto) Eos # (Auto) Baso # (Auto) Immature Gran # (Auto) PT INR Sodium Potassium Chloride Carbon Dioxide Anion Gap BUN Creatinine Est Cr Clr Drug Dosing Est GFR ( Amer) Est GFR (Non-Af Amer) BUN/Creatinine Ratio Glucose POC Glucose 95 Estimat Average Glucose 105 Hemoglobin A1c 5.3 Calcium Magnesium Total Bilirubin AST ALT Alkaline Phosphatase Troponin I High Sens 3.7 Total Protein Albumin Globulin Albumin/Globulin Ratio TSH Urine Color Urine Appearance Urine pH Ur Specific [place] Urine Protein Urine Glucose (UA) Urine Ketones Urine Blood Urine Nitrite Urine Bilirubin Urine Urobilinogen Ur Leukocyte Esterase Urine WBC (Auto) Urine RBC (Auto) U Hyaline Cast (Auto) U Epithel Cells (Auto) Urine Bacteria (Auto) SARS-CoV-2, RNA, NAAT Blood Type Antibody Screen
[2021-09-24] MEDS: D5NSS + 20MEQ KCL 20 MEQ/1,000 ML BAG IV SCH ×2 (10:46→21:50)
[2021-09-24] MEDS ORDERED: fentaNYL citrate 100 MCG/2 ML VIAL ONE ×2 (10:47→12:31)
[2021-09-24] MEDS ORDERED: PROPOFOL IV EMULSION 10 MG/ML 20 ML VIAL IV ONE (10:47)
[2021-09-24] MEDS ORDERED: LIDOCAINE 2% 2 ML VIAL/AMP(20MG/ML) INFIL ONE (10:47)
[2021-09-24] MEDS ORDERED: ONDANSETRON INJ 2 MG/ML 2 ML VIAL ONE (10:47)
[2021-09-24] MEDS ORDERED: DEXAMETHASONE SOD INJ 4 MG/ML VIAL ONE (10:47)
[2021-09-24] MEDS ORDERED: MIDAZOLAM HCL 1 MG/ML 2ML VIAL ONE (10:48)
[2021-09-24 11:18] LABS: Hematocrit (blood only) 30.8 % (40.1-51.0); Hemoglobin 9.9 g/dl (14.0-18.0)
[2021-09-24] MEDS ORDERED: ONDANSETRON INJ 2 MG/ML 2 ML VIAL IV PRN (12:09)
[2021-09-24] MEDS ORDERED: ePHEDrine sulfate 50 MG/ML AMP IV PRN (12:09)
[2021-09-24] MEDS ORDERED: ATROPINE SULFATE 0.1 MG/ML 10ML SYR IV PRN (12:09)
--- NOTE | 2021-09-24 12:46 | Operative Report ---
Post Operative Report Pre & Post Diagnosis Operation Date: 09/24/21 11:00 Pre-Op Diagnosis: Acute Gastrointestinal Bleed, History of Esophageal Cancer Post-Op Diagnosis: Acute Gastrointestinal Bleed, History of Esophageal Cancer I identified the patient and participated in the time-out.: Yes Procedure Operation Date: 09/24/21 11:00 Actual Procedures p Esophagogastroduodenoscopy with Placement of Esophageal Stent in OR(Not Applicable) - Alis Fay MD Surgeon Alis Fay MD Circuit Tester None Estimated Blood Loss 0 Findings See Below (Esophageal tumor with bleeding and severe stenosis, treated by esophageal stent placement) Specimens None Description of Procedure EGD I attest to the content of the Intraoperative Record and any orders documented therein. Any exceptions are noted below.
--- NOTE | 2021-09-24 13:09 | GI REPORT ---
Patient Name: René Cordoba Procedure Date: 09/24/2021 11:42 AM Date of : 1955 Admit Type: Inpatient Age: 66 Gender: Male Attending MD: Alis Fay MD Procedure: Upper GI endoscopy Providers: Alis Fay MD Referring MD: Gerry Heller Indications: Dysphagia, Melena Medicines: General Anesthesia Complications: No immediate complications. Estimated Blood Loss: Estimated blood loss: none. Procedure: Pre-Anesthesia Assessment: - Prior to the procedure, a History and Physical was performed, and patient medications, allergies and sensitivities were reviewed. The patient's tolerance of previous anesthesia was reviewed. - The risks and benefits of the procedure and the sedation options and risks were discussed with the patient. All questions were answered and informed consent was obtained. - Patient identification and proposed procedure were verified prior to the procedure by the physician and the nurse. The procedure was verified in the procedure room. - Pre-procedure physical examination revealed no contraindications to sedation. After obtaining informed consent, the endoscope was passed under direct vision. Throughout the procedure, the patient's blood pressure, pulse, and oxygen saturations were monitored continuously. The Endoscope was introduced through the mouth, and advanced to the second part of duodenum. The Endoscope was introduced through the mouth, and advanced to the body of the stomach. The upper GI endoscopy was accomplished without difficulty. The patient tolerated the procedure well. Findings: One severe (stenosis; an endoscope cannot pass) stenosis was found 40 cm from the incisors. This stenosis measured 5 mm (inner diameter) x 1 cm (in length). The stenosis was traversed after downsizing scope. One deeply cratered esophageal ulcer oozing blood from the edges was found at the gastroesophageal junction. The lesion was 20 mm in largest dimension. This was stented with a 20 mm x 12.5 cm Evolution partially covered controlled-release stent with a 25 mm flange under fluoroscopic guidance. I personally interpreted the fluoroscopic images. Two hemostatic clips were successfully placed (MR conditional) on the proximal side to anchor the stent. The stent was intentionally placed slightly deeper in the stomach to allow the fully covered portion of the stent to cover the ulcer area and provide a tamponade effect. Hematin (altered blood/ihyhgy-pvbkmo-[id number] material) was found in the gastric fundus. Impression: - Severe Esophageal stenosis post Radiochemotherapy. - Large esophageal ulcer at the GE junction related to previously known esophageal malignancy with slight blood oozing. A 12.5 cm Partially covered esophageal stent was placed. - Large blood clot seen in the gastric fundus. Recommendation: - Return patient to [facility] for ongoing care. - Clear liquid diet for 2 days, then advance as tolerated to full liquid diet for 2 days then follow post esophageal stent diet. - Use a proton pump inhibitor IV BID for 2 days then PO BID. - Follow an antireflux regimen. - Follow up with oncologist. Alis Fay MD 09/24/2021 1:08:49 PM This report has been signed electronically. Note Initiated On: 09/24/2021 11:42 AM Number of Addenda: 0 I attest to the content of the Intraoperative Record and orders documented therein, exceptions below {[id number]}
[2021-09-24] MEDS: fentaNYL citrate 100 MCG/2 ML VIAL IV PRN ×4 (13:10→13:30)
[2021-09-24] MEDS ORDERED: METOCLOPRAMIDE HCL INJ 5 MG/ML 2 ML VIAL IV ONE (13:31)
[2021-09-24] MEDS ORDERED: METOCLOPRAMIDE HCL INJ 5 MG/ML 2 ML VIAL ONE (13:31)
--- NOTE | 2021-09-24 14:16 | XRay Report ---
SINGLE VIEW CHEST CLINICAL HISTORY: Esophageal stent placement. FINDINGS: An AP, portable, upright chest radiograph is correlated with abdominal CT performed 09/24/19 and PET/CT dated 03/23/2021. An esophageal stent is new from previous. This extends from the lower chest to the proximal stomach. The cardiomediastinal silhouette is unremarkable noting atheroscleroti c calcification of the thoracic aorta. There is mild bibasilar scarring/atelectasis. The lungs and pl eural spaces are otherwise clear. No pneumothorax is seen. The skeletal structures are osteopenic. Th e bony thorax is grossly intact. IMPRESSION: 1. The lungs are clear. 2. An esophageal stent is new from previous. ACT 112: Negative or not required by law. Electronically signed by: Peter Noel M.D. 09/24/2021 2:14 PM
--- NOTE | 2021-09-24 14:33 | Fluoroscopy Report ---
INTRAOPERATIVE RADIOGRAPHS CLINICAL HISTORY: Endoscopy with esophageal stent placement. COMPARISON STUDY: Abdominal CT dated 09/23/2021. Fluoroscopy time: 61 seconds. FINDINGS: 55 spot fluoroscopic images of the upper abdomen are presented. A wire and endoscope are ad vanced into the stomach. An esophageal stent is deployed. This extends from the lower chest to the pr oximal stomach. The stent expands normally. IMPRESSION: Intraoperative images from an esophageal stent placement procedure as above. See operativ e report for detailed findings. Electronically signed by: Peter Noel M.D. 09/24/2021 2:31 PM
--- NOTE | 2021-09-24 14:49 | Anesthesiology Progress Note ---
Date of Service September 24, 2021 Anesthesia Post Procedure Vital Signs Vital Signs: Temp Pulse Pulse Pulse Resp BP BP 09/24/21 13:50 105 H 22 136/92 09/24/21 13:40 140 H 19 170/110 H 09/24/21 13:30 110 H 18 156/100 H 09/24/21 13:20 105 H 17 159/103 H 09/24/21 13:10 120 H 21 159/96 H 09/24/21 13:00 97.2 F L 111 H 21 126/109 H 09/24/21 10:00 80 19 135/84 09/24/21 07:00 77 18 115/94 09/24/21 04:06 79 16 130/81 09/24/21 04:00 81 09/24/21 03:13 78 17 128/78 09/24/21 01:16 93 H 17 119/74 09/23/21 23:06 86 17 127/92 09/23/21 23:01 84 18 09/23/21 23:01 09/23/21 20:52 16 137/100 09/23/21 20:33 96 H 18 137/100 Pulse Ox O2 Del Method 09/24/21 13:50 99 Room Air 09/24/21 13:40 99 Room Air 09/24/21 13:30 99 Room Air 09/24/21 13:20 99 Room Air 09/24/21 13:10 100 Room Air 09/24/21 13:00 100 Room Air 09/24/21 10:00 100 Room Air 09/24/21 07:00 98 09/24/21 04:06 97 Room Air 09/24/21 04:00 97 Room Air 09/24/21 03:13 98 Room Air 09/24/21 01:16 97 Room Air 09/23/21 23:06 98 Room Air 09/23/21 23:01 99 Room Air 09/23/21 23:01 99 Room Air 09/23/21 20:52 100 Room Air 09/23/21 20:33 100 Room Air Pain Intensity Abdomen: Pain Intensity: 2 Throat: Pain Intensity: 3 Transfer of Care Handoff Completed per policy Notes Mental Status: alert / awake / arousable and participated in evaluation Patient Amnestic to Procedure: Yes Nausea / Vomiting: adequately controlled Pain: adequately controlled Airway Patency, RR, SpO2: stable & adequate BP & HR: stable & adequate Hydration State: stable & adequate Anesthetic Complications: no major complications apparent and Pt Satisfied with anesthetic care
[2021-09-24] MEDS: ONDANSETRON INJ 2 MG/ML 2 ML VIAL IV PRN ×2 (15:42→22:07)
[2021-09-24] MEDS ORDERED: ERYTHROMYCIN 250 MG in SODIUM CHLORIDE 0.9% 250 ML IV ONE (16:00)
[2021-09-24] MEDS ORDERED: PROCHLORPERAZINE 5 MG in SYRINGE 4 ML IV ONE (16:00)
[2021-09-24 16:04] LABS: Hematocrit (blood only) 28.8 % (40.1-51.0); Hemoglobin 9.2 g/dl (14.0-18.0); Mean Corpuscular Hemoglobin 30.9 pg (25.0-34.0); Mean Corpuscular Hgb Conc 31.9 g/dL (32.0-36.0); Mean Corpuscular Volume 96.6 fL (80.0-100.0); Mean Platelet Volume 9.4 fL (9.4-12.4); Platelet Count 267 K/uL (130-400); RDW Standard Deviation 53.4 fL (36.4-46.3); Red Blood Count 2.98 M/uL (4.63-6.08); White Blood Count 10.08 K/ul (4.8-10.8)
--- NOTE | 2021-09-24 16:22 | Communication Note ---
Date of Service: September 24, 2021 The patient was seen and examined in telemetry unit. He was admitted today and he is a status post EGD with esophageal stent placement. He will have full progress note tomorrow. Dr Deondre Heller
[2021-09-24 16:27] LABS: Basophils # (auto) 0.02 K/uL (0-0.2); Basophils % (auto) 0.2 %; Eosinophils # (auto) 0.01 K/uL (0-0.50); Eosinophils % (auto) 0.1 %; Immature Granulocytes # (auto) 0.06 K/uL (0.00-0.02); Immature Granulocytes % (auto) 0.6 %; Lymphocytes # (auto) 0.52 K/uL (1.2-3.4); Lymphocytes % (auto) 5.2 %; Monocytes # (auto) 0.14 K/uL (0.24-0.82); Monocytes % (auto) 1.4 %; Neutrophils # (auto) 9.33 K/uL (1.4-6.5); Neutrophils % (auto) 92.5 %
[2021-09-24] MEDS ORDERED: PROMETHAZINE HCL 12.5 MG in SODIUM CHLORIDE 0.9% 50 ML IV STA (19:48)
[2021-09-24] MEDS ORDERED: diphenhydrAMINE 50 MG/ML VIAL IV STA (19:48)
[2021-09-24] MEDS ORDERED: ACETAMINOPHEN 1000 MG/100 ML IV IV STA (21:43)
--- NOTE | 2021-09-24 22:54 | Electrocardiogram Report ---
Test Reason : Blood Pressure : / mmHG Vent. Rate : 100 BPM Atrial Rate : 100 BPM P-R Int : 148 ms QRS Dur : 080 ms QT Int : 368 ms P-R-T Axes : 077 033 045 degrees QTc Int : 474 ms Poor data quality, interpretation may be adversely affected Sinus rhythm with occasional Premature ventricular complexes Otherwise normal ECG No previous ECGs available Confirmed by Meir Pham ([id number]) on 09/24/2021 10:53:45 PM Referred By: REFERRED SELF Confirmed By:Meir Pham
[2021-09-25] MEDS: PANTOprazole 40 MG in DEXTROSE 5% 100 ML IV SCH ×5 (03:37→23:45)
[2021-09-25] MEDS: ONDANSETRON INJ 2 MG/ML 2 ML VIAL IV PRN ×3 (06:02→19:37)
[2021-09-25] MEDS: INSULIN ASPART PER UNIT SC SCH ×4 (06:24→20:40)
[2021-09-25] MEDS ORDERED: ACETAMINOPHEN 1000 MG/100 ML IV IV PRN (07:17)
[2021-09-25] MEDS: ACETAMINOPHEN 1,000 MG/100 ML VIAL IV PRN ×2 (07:27→15:56)
[2021-09-25 07:54] LABS: BUN Creatinine Ratio 21.3 (10-20); Calcium 8.7 mg/dl (8.5-10.1); Creatinine Clr Calc Pharmacy 98.8 ml/min; Est GFR (African American) 112.4 ml/min; Est GFR (Non-African American) 96.9 ml/min; Potassium 3.7 mmol/L (3.5-5.1)
[2021-09-25] MEDS: PROMETHAZINE HCL 12.5 MG in SODIUM CHLORIDE 0.9% 50 ML IV PRN ×2 (08:06→16:15)
[2021-09-25] MEDS: D5NSS + 20MEQ KCL 20 MEQ/1,000 ML BAG IV SCH (08:13)
--- NOTE | 2021-09-25 11:13 | Gastroenterology Progress Note ---
Date of Service September 25, 2021 Assessment & Plan Admission and Anticipated Discharge Date Admission Date: September 24, 2021 Subjective Patient was seen and examined today, feels much better, chest pain is better, no nausea or vomiting today, vomited large blood clot after the procedure yesterday. He still feels that he wants to spit out but denies dysphagia. On exam abdomen is soft. Labs: reviewed H/H stable BUn normal. CXR with stent in good position. Recommend: Continue IV PPI. IV Antiemetics. Trial of clear liquids today. Results & Data ([facility]) Vital Signs (Past 12 Hours) Vital Signs Temp Pulse Pulse Resp BP Pulse Ox O2 Del Method 09/25/21 07:00 105 H 09/25/21 07:33 36.8 C 84 18 152/89 H 99 Room Air 09/25/21 04:19 36.8 C 83 20 158/95 H 92 Room Air 09/25/21 00:09 92 H
[2021-09-25] MEDS ORDERED: Nursing to Pharmacy Communication SCH (11:15)
--- NOTE | 2021-09-25 12:30 | Hospitalist Progress Note ---
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 Admitted with the acute GI bleed Status post EGD with control of acute bleeding Hemoglobin remains stable (3) Malignant neoplasm of lower third of esophagus: Plan: Status post chemoradiation EGD did not show severe stenosis of the lower esophagus Status post stent placement on 09/24/2021 Tolerating clears (4) Type 2 diabetes mellitus: Plan: We will continue with SSI (5) Hypertension: Plan: Blood pressure is controlled Plan DVT prophylaxis SCDs CODE STATUS DNI DNR Admission and Anticipated Discharge Date Admission Date: September 24, 2021 Subjective 09/25/2021 The patient was seen and examined in telemetry unit in presence of the He is a status post esophageal stent placement on 09/24/2021 Complains to have some pain and nausea Denies any other significant symptoms Review of Systems Review of Systems: All systems reviewed and are unremarkable except as noted below Physical Exam Physical Exam: Lying in bed comfortably Constitutional: + ill appearing and average body habitus Eyes: PERRL, conjunctivae normal, anicteric sclerae ENMT: external ear and nose normal, oropharynx normal Neck: trachea midline, no thyromegaly Respiratory: no respiratory distress Auscultation: lungs clear to auscultation bilaterally Cardiovascular: Rate/Rhythm: regular rate and regular rhythm; not tachycardic Heart Sounds: normal S1 and normal S2; no murmur Extremities: no edema Gastrointestinal (Abdomen): Inspection/Auscultation: normal bowel sounds; ab domen not distended Percussion/Palpation: abdomen soft; abdomen nontender Musculoskeletal: No acute arthritis in any joint Neurologic: Alert, awake and oriented x3. Generally weak but no focal sensory or no motor deficit appreciated Lymphatic: no cervical or axillary lymphadenopathy Results & Data Results & Data ([facility]) Vital Signs (Past 12 Hours) Vital Signs Temp Pulse Pulse Resp BP Pulse Ox O2 Del Method 09/25/21 12:13 37.0 C 78 18 151/82 H 98 Room Air 09/25/21 07:00 105 H 09/25/21 07:33 36.8 C 84 18 152/89 H 99 Room Air 09/25/21 04:19 36.8 C 83 20 158/95 H 92 Room Air Laboratory Results Short CBC 09/24/21 Range/Units 15:48 WBC 10.08 (4.8-10.8) K/ul Hgb 9.2 L (14.0-18.0) g/dl Hct 28.8 L (40.1-51.0) % Plt Count 267 (130-400) K/uL BMP 09/25/21 07:09 Sodium 139 Potassium 3.7 Chloride 110 H Carbon Dioxide 21 BUN 16 Creatinine 0.75 Glucose 174 H Calcium 8.7 Medications Administered Current Inpatient Medications Acetaminophen (Acetaminophen 325 Mg Tab) 650 mg PO Q4H PRN PRN Reason: Pain or Fever Stop: 10/24/21 03:33 Dextrose (Dextrose 50% 50 Ml Syringe) 25 - 50 ml IV UD PRN; Protocol PRN Reason: Hypoglycemia Protocol Stop: 10/24/21 03:44 Glucagon (Glucagon For Inj 1 Mg Vial) 1 mg IM UD PRN; Protocol PRN Reason: Hypoglycemia Protocol Stop: 10/24/21 03:44 Glucose (Glucose 40% Gel 15 Gm Tube) 15 - 30 gm PO UD PRN; Protocol PRN Reason: Hypoglycemia Protocol Stop: 10/24/21 03:44 Glucose (Glucose 10 Tab/Tube) 4 - 8 tab PO UD PRN; Protocol PRN Reason: Hypoglycemia Protocol Stop: 10/24/21 03:44 Pantoprazole Sodium 40 mg/ (Dextrose) 100 mls @ 20 mls/hr IV Q5H MAXI Stop: 10/24/21 06:29 Last Admin: 09/25/21 08:29 Dose: 8 mg/hr, 20 mls/hr Potassium Chloride/Dextrose/Sod Cl (D5nss + 20meq Kcl) 20 meq in 1,000 mls @ 100 mls/hr IV .Q10H MAXI; Protocol Stop: 09/25/21 15:59 Last Admin: 09/25/21 08:13 Dose: 100 mls/hr Acetaminophen (Ofirmev) 1,000 mg in 100 mls @ 400 mls/hr IV Q8H PRN; Protocol PRN Reason: Headache Stop: 09/28/21 07:29 Last Infusion: 09/25/21 07:57 Dose: Infused Promethazine HCl 12.5 mg/ (Sodium Chloride) 50.5 mls @ 202 mls/hr IV Q6H PRN PRN Reason: Nausea/Vomiting (second line) Stop: 10/25/21 07:33 Last Infusion: 09/25/21 08:36 Dose: Infused Insulin Aspart (Insulin Aspart Per Unit) 0 units SC ACHS MAXI Stop: 10/25/21 11:29 Last Admin: 09/25/21 12:13 Dose: Not Given Miscellaneous (Carbohydrates For Hypoglycemia ) 15 - 30 gm PO UD PRN PRN Reason: Hypoglycemia Treatment Stop: 10/24/21 03:44 Morphine Sulfate (Morphine Sulfate 2 Mg/Ml Carp) 2 mg IV Q4H PRN PRN Reason: Pain Stop: 10/09/21 12:18 Nitroglycerin (Nitroglycerin Sl 0.4 Mg/Tab Tab) 0.4 mg SL UD PRN PRN Reason: Chest Pain Stop: 10/24/21 03:33 Ondansetron HCl (Ondansetron Inj 2 Mg/Ml 2 Ml Vial) 4 mg IV Q6H PRN PRN Reason: Nausea Stop: 10/24/21 03:33 Last Admin: 09/25/21 12:19 Dose: 4 mg
[2021-09-25] MEDS: MoRPHine SULFATE 2 MG/ML CARP IV PRN ×2 (13:28→19:36)
--- NOTE | 2021-09-25 19:28 | CT Scan Report ---
CT chest diagnostic wo con, CT abdomen wo con CT DOSE: 451.81 mGy.cm HISTORY: Persistent nausea post esophageal stent placement TECHNIQUE: Multiaxial CT images of the chest were performed without contrast. A dose lowering techni que was utilized adhering to the principles of ALARA. COMPARISON: Abdomen and pelvis CT 09/23/2021. FINDINGS: Chest CT: The central airways are patent. No pneumothorax. No focal lung consolidations to suggest pn eumonia. No suspicious pulmonary nodules. Mild right paraesophageal density favors post radiation trey nges. No pneumomediastinum. Interval placement of a esophageal stent which traverses the distal esoph ageal/gastroesophageal mass. This is located within the distal esophagus and proximal stomach. This a ppears patent. No evidence for esophageal perforation. No mediastinal or hilar lymphadenopathy. The h eart is normal in size. No pleural or pericardial effusions. No suspicious lytic or blastic osseous l esions. Abdomen CT: The distal esophageal/gastroesophageal mass is again noted. Mild gastrohepatic lymphadeno derek persists. Hypodense right hepatic lobe lesions likely represent metastatic disease. These are s imilar to the prior CT examination. The unenhanced spleen, adrenal glands, and kidneys are unremarkab le. No pneumoperitoneum. No pneumatosis. No suspicious osseous lesions identified. Mild infiltration is again seen surrounding the pancreatic body and tail. The stomach is decompressed. The visualized l oops of bowel show no wall thickening or obstruction. Normal appendix. No renal stones or hydronephro sis. Normal caliber abdominal aorta. Normal gallbladder. Gastric wall thickening is noted. IMPRESSION: 1. Interval placement of a distal esophageal stent which extends into the proximal stomach. This appe ars in good position and is patent. No evidence for esophageal perforation. This traverses the gastro esophageal mass. 2. Redemonstration of the hepatic hypodense lesions and mild gastrohepatic lymphadenopathy. This lik adwoa represents metastatic disease. 3. Mild infiltration surrounding the body and tail the pancreas, unchanged. This could represent a mi ld acute pancreatitis or reactive to the adjacent gastric wall thickening. Recommend correlation with pancreatic enzymes. ACT 112: Negative or not required by law. Electronically signed by: Naresh Villalpando M.D. 09/25/2021 7:26 PM
--- NOTE | 2021-09-25 21:12 | Electrocardiogram Report ---
Test Reason : Blood Pressure : / mmHG Vent. Rate : 087 BPM Atrial Rate : 087 BPM P-R Int : 150 ms QRS Dur : 084 ms QT Int : 400 ms P-R-T Axes : 070 007 022 degrees QTc Int : 482 ms Sinus rhythm with frequent Premature ventricular complexes Low voltage QRS Prolonged QT When compared with ECG of 23-SEP-2021 20:30, No significant change Confirmed by Meir Pham ([id number]) on 09/25/2021 9:12:11 PM Referred By: REFERRED SELF Confirmed By:Meir Pham
--- NOTE | 2021-09-25 23:19 | Gastroenterology Progress Note ---
Date of Service September 25, 2021 Assessment & Plan Admission and Anticipated Discharge Date Admission Date: September 24, [address] scan reviewed, Esophageal stent in good position, patents and across the stenosis. Otherwise no signs of complications. Continue clear liquids for another day then full liquids for 2 days then follow post stent diet. Need to be on PO PPI BID. PRN antiemetics. Recall GI if needed. Results & Data ([facility]) Vital Signs (Past 12 Hours) Vital Signs Temp Pulse Resp BP Pulse Ox O2 Del Method 09/25/21 23:12 36.5 C 111 H 17 121/81 98 Room Air 09/25/21 19:19 36.8 C 84 16 138/90 98 Room Air 09/25/21 15:48 36.8 C 83 20 150/83 H 98 Room Air 09/25/21 12:13 37.0 C 78 18 151/82 H 98 Room Air
[2021-09-26] MEDS: ONDANSETRON INJ 2 MG/ML 2 ML VIAL IV PRN ×4 (02:21→23:55)
[2021-09-26] MEDS: MoRPHine SULFATE 2 MG/ML CARP IV PRN ×2 (02:22→13:23)
[2021-09-26] MEDS: PANTOprazole 40 MG in DEXTROSE 5% 100 ML IV SCH ×4 (04:45→21:55)
[2021-09-26 06:09] LABS: Basophils # (auto) 0.02 K/uL (0-0.2); Basophils % (auto) 0.2 %; Hemoglobin 8.2 g/dl (14.0-18.0); Immature Granulocytes % (auto) 0.8 %; Lymphocytes # (auto) 0.48 K/uL (1.2-3.4); Lymphocytes % (auto) 3.7 %; Mean Corpuscular Hemoglobin 30.3 pg (25.0-34.0); Mean Corpuscular Hgb Conc 31.5 g/dL (32.0-36.0); Mean Corpuscular Volume 95.9 fL (80.0-100.0); Mean Platelet Volume 9.8 fL (9.4-12.4); Monocytes # (auto) 1.39 K/uL (0.24-0.82); Monocytes % (auto) 10.8 %; Neutrophils # (auto) 10.89 K/uL (1.4-6.5); Neutrophils % (auto) 84.5 %; Platelet Count 255 K/uL (130-400); RDW Coefficient of Variation 15.4 % (11.5-14.5); RDW Standard Deviation 54.2 fL (36.4-46.3); Red Blood Count 2.71 M/uL (4.63-6.08); White Blood Count 12.88 K/ul (4.8-10.8)
[2021-09-26 06:34] LABS: Calcium 8.7 mg/dl (8.5-10.1); Creatinine Clr Calc Pharmacy 108.3 ml/min; Est GFR (African American) 116.3 ml/min; Est GFR (Non-African American) 100.3 ml/min
[2021-09-26] MEDS: INSULIN ASPART PER UNIT SC SCH ×4 (08:20→21:48)
[2021-09-26] MEDS: POTASSIUM CHLORIDE / WTR 10 MEQ/100 ML PLCT IV SCH ×2 (08:55→11:15)
--- NOTE | 2021-09-26 09:09 | Gastroenterology Progress Note ---
Date of Service September 26, 2021 Assessment & Plan (1) Esophageal stenosis: (2) Acute GI bleeding: Plan: Pt is a 66 yo male w esophageal ca s/p XRT and chemo, admitted w GI bleed and dysphagia symptoms. EGD 09/24/2021 showed esophageal ulcer at GE junction, esophageal stenosis, 12.5cm partially covered esophageal stent placed. He is tolerating CL diet well now wo c/o abd pain, n/v, though noted spitting up saliva in emesis bag. Mild esophageal pressure (expected with stent placement). Blood ct stable - Advance to FL diet x 2 days, then follow stent diet (low residue, may print handbook from eso_stent_patient_nutrition.pdf ([employer]) [email or web address] [email or web address]-[email or web address]_stent_patient_[email or web address] ) - PPI PO BID - Recall GI PRN Admission and Anticipated Discharge Date Admission Date: September 24, 2021 Supervising Physician Co-Signing Physician Notes The patient is s/p replacement of an esopahgeal stent and notes liquids are being swallowed without difficulty. Recomendations: Please follow the dietary guidelines placed int the chart Please call with any questions GI to sign off. Subjective Pt seen spitting saliva into emesis bag. States however he feels well, denies any n/v. He is tolerating CL diet well. Some chest pressure but toleraable. No abd pain Review of Systems Review of Systems: All systems reviewed & are unremarkable except as noted in HPI & below Physical Exam Constitutional: WD/WN, vitals as above well groomed, cooperative and comfortable Eyes: PERRL, conjunctivae normal, anicteric sclerae Respiratory: normal respiratory effort, lungs clear to auscultation Cardiovascular: RRR, no murmur, no edema Gastrointestinal (Abdomen): normal bowel sounds, soft, nontender, no hepatosplenomegaly Skin: no rashes, warm and dry no jaundice Neurologic: Motor/Sensory: no asterixis Psychiatric: A+Ox3, euthymic affect Lymphatic: no lymphedema Results & Data ([facility]) Vital Signs (Past 12 Hours) Vital Signs Temp Pulse Pulse Resp BP Pulse Ox O2 Del Method 09/26/21 07:18 85 09/26/21 07:07 36.8 C 84 17 160/86 H 100 Room Air 09/26/21 03:31 36.8 C 83 18 136/67 99 Room Air 09/26/21 00:17 86 09/25/21 23:12 36.5 C 111 H 17 121/81 98 Room Air
--- NOTE | 2021-09-26 10:44 | Electrocardiogram Report ---
Test Reason : Blood Pressure : / mmHG Vent. Rate : 091 BPM Atrial Rate : 091 BPM P-R Int : 136 ms QRS Dur : 084 ms QT Int : 378 ms P-R-T Axes : 076 012 049 degrees QTc Int : 464 ms Sinus rhythm with occasional Premature ventricular complexes Otherwise normal ECG When compared with ECG of 25-SEP-2021 06:21, No significant change was found Confirmed by Galo Henderson ([id number] on 09/26/2021 10:44:45 AM Referred By: REFERRED SELF Confirmed By:Galo Henderson
[2021-09-26] MEDS: ACETAMINOPHEN 1,000 MG/100 ML VIAL IV PRN (10:49)
[2021-09-26] MEDS: PROMETHAZINE HCL 12.5 MG in SODIUM CHLORIDE 0.9% 50 ML IV PRN ×2 (11:13→19:44)
[2021-09-26] MEDS ORDERED: Nursing to Pharmacy Communication SCH (11:30)
--- NOTE | 2021-09-26 14:08 | Hospitalist Progress Note ---
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 Admitted with the acute GI bleed Status post EGD with control of acute bleeding Hemoglobin remains stable-hemoglobin 8.2 as of 09/26/2021 Continue twice daily PPI (3) Malignant neoplasm of lower third of esophagus: Plan: Status post chemoradiation EGD did not show severe stenosis of the lower esophagus Status post stent placement on 09/24/2021 Tolerating clears-diet advance as tolerated Will need stent diet on discharge (4) Type 2 diabetes mellitus: Plan: We will continue with SSI (5) Hypertension: Plan: Blood pressure is controlled Plan DVT prophylaxis SCDs CODE STATUS DNI DNR Admission and Anticipated Discharge Date Admission Date: September 24, 2021 Subjective 09/25/2021 The patient was seen and examined in telemetry unit in presence of the He is a status post esophageal stent placement on 09/24/2021 Complains to have some pain and nausea Denies any other significant symptoms 09/26/2021 The patient was seen and examined in telemetry unit He remained stable but generally very weak and lethargic Continues to have nausea The pain seems to be controlled Review of Systems Review of Systems: All systems reviewed and are unremarkable except as noted below Physical Exam Physical Exam: Lying in bed comfortably Constitutional: + ill appearing and average body habitus Eyes: PERRL, conjunctivae normal, anicteric sclerae ENMT: external ear and nose normal, oropharynx normal Neck: trachea midline, no thyromegaly Respiratory: no respiratory distress Auscultation: lungs clear to auscultation bilaterally Cardiovascular: Rate/Rhythm: regular rate and regular rhythm; not tachycardic Heart Sounds: normal S1 and normal S2; no murmur Extremities: no edema Gastrointestinal (Abdomen): Inspection/Auscultation: normal bowel sounds; abdomen not distended Percussion/Palpation: abdomen soft; abdomen nontender Musculoskeletal: No acute arthritis in any joint Neurologic: Alert, awake and oriented x3. Generally weak but no focal sensory or no motor deficit appreciated Lymphatic: no cervical or axillary lymphadenopathy Results & Data Results & Data ([facility]) Vital Signs (Past 12 Hours) Vital Signs Temp Pulse Pulse Resp BP Pulse Ox O2 Del Method 09/26/21 11:51 36.5 C 87 16 134/71 96 Room Air 09/26/21 07:18 85 09/26/21 07:07 36.8 C 84 17 160/86 H 100 Room Air 09/26/21 03:31 36.8 C 83 18 136/67 99 Room Air Laboratory Results Short CBC 09/26/21 Range/Units 05:38 WBC 12.88 H (4.8-10.8) K/ul Hgb 8.2 L (14.0-18.0) g/dl Hct 26.0 L (40.1-51.0) % Plt Count 255 (130-400) K/uL BMP 09/26/21 05:38 Sodium 142 Potassium 3.0 L Chloride 109 H Carbon Dioxide 26 BUN 9 Creatinine 0.69 Glucose 129 H Calcium 8.7 Medications Administered Current Inpatient Medications Acetaminophen (Acetaminophen 325 Mg Tab) 650 mg PO Q4H PRN PRN Reason: Pain or Fever Stop: 10/24/21 03:33 Dextrose (Dextrose 50% 50 Ml Syringe) 25 - 50 ml IV UD PRN; Protocol PRN Reason: Hypoglycemia Protocol Stop: 10/24/21 03:44 Glucagon (Glucagon For Inj 1 Mg Vial) 1 mg IM UD PRN; Protocol PRN Reason: Hypoglycemia Protocol Stop: 10/24/21 03:44 Glucose (Glucose 40% Gel 15 Gm Tube) 15 - 30 gm PO UD PRN; Protocol PRN Reason: Hypoglycemia Protocol Stop: 10/24/21 03:44 Glucose (Glucose 10 Tab/Tube) 4 - 8 tab PO UD PRN; Protocol PRN Reason: Hypoglycemia Protocol Stop: 10/24/21 03:44 Pantoprazole Sodium 40 mg/ (Dextrose) 100 mls @ 20 mls/hr IV Q5H MAXI Stop: 10/24/21 06:29 Last Admin: 09/26/21 11:19 Dose: 8 mg/hr, 20 mls/hr Acetaminophen (Ofirmev) 1,000 mg in 100 mls @ 400 mls/hr IV Q8H PRN; Protocol PRN Reason: Headache Stop: 09/28/21 07:29 Last Infusion: 09/26/21 11:13 Dose: Infused Promethazine HCl 12.5 mg/ (Sodium Chloride) 50.5 mls @ 202 mls/hr IV Q6H PRN PRN Reason: Nausea/Vomiting (second line) Stop: 10/25/21 07:33 Last Infusion: 09/26/21 11:54 Dose: Infused Insulin Aspart (Insulin Aspart Per Unit) 0 units SC ACHS MAXI Stop: 10/25/21 11:29 Last Admin: 09/26/21 11:24 Dose: Not Given Miscellaneous (Carbohydrates For Hypoglycemia ) 15 - 30 gm PO UD PRN PRN Reason: Hypoglycemia Treatment Stop: 10/24/21 03:44 Morphine Sulfate (Morphine Sulfate 2 Mg/Ml Carp) 2 mg IV Q4H PRN PRN Reason: Pain Stop: 10/09/21 12:18 Last Admin: 09/26/21 13:23 Dose: 2 mg Nitroglycerin (Nitroglycerin Sl 0.4 Mg/Tab Tab) 0.4 mg SL UD PRN PRN Reason: Chest Pain Stop: 10/24/21 03:33 Ondansetron HCl (Ondansetron Inj 2 Mg/Ml 2 Ml Vial) 4 mg IV Q6H PRN PRN Reason: Nausea Stop: 10/24/21 03:33 Last Admin: 09/26/21 08:52 Dose: 4 mg
[2021-09-26] MEDS ORDERED: diphenhydrAMINE 50 MG/ML VIAL IV STA (19:39)
[2021-09-27] MEDS: PROMETHAZINE HCL 12.5 MG in SODIUM CHLORIDE 0.9% 50 ML IV PRN (02:11)
[2021-09-27] MEDS: PANTOprazole 40 MG in DEXTROSE 5% 100 ML IV SCH ×2 (02:32→08:03)
[2021-09-27] MEDS: ONDANSETRON INJ 2 MG/ML 2 ML VIAL IV PRN (04:48)
[2021-09-27] MEDS ORDERED: METOCLOPRAMIDE HCL INJ 5 MG/ML 2 ML VIAL IV PRN (07:45)
[2021-09-27] MEDS: INSULIN ASPART PER UNIT SC SCH ×4 (08:03→20:49)
[2021-09-27 08:19] LABS: Eosinophils # (auto) 0.01 K/uL (0-0.50); Eosinophils % (auto) 0.1 %; Hematocrit (blood only) 26.1 % (40.1-51.0); Hemoglobin 8.4 g/dl (14.0-18.0); Immature Granulocytes # (auto) 0.07 K/uL (0.00-0.02); Immature Granulocytes % (auto) 0.6 %; Lymphocytes % (auto) 6.3 %; Mean Corpuscular Hemoglobin 30.4 pg (25.0-34.0); Mean Corpuscular Hgb Conc 32.2 g/dL (32.0-36.0); Mean Corpuscular Volume 94.6 fL (80.0-100.0); Mean Platelet Volume 9.7 fL (9.4-12.4); Monocytes # (auto) 0.98 K/uL (0.24-0.82); Monocytes % (auto) 8.8 %; Neutrophils # (auto) 9.38 K/uL (1.4-6.5); Neutrophils % (auto) 84.2 %; Platelet Count 260 K/uL (130-400); RDW Coefficient of Variation 15.5 % (11.5-14.5); RDW Standard Deviation 53.2 fL (36.4-46.3); Red Blood Count 2.76 M/uL (4.63-6.08); White Blood Count 11.14 K/ul (4.8-10.8)
[2021-09-27 08:45] LABS: BUN Creatinine Ratio 11.8 (10-20); Calcium 8.9 mg/dl (8.5-10.1); Creatinine Clr Calc Pharmacy 109.9 ml/min; Est GFR (Non-African American) 100.9 ml/min; Potassium 3.2 mmol/L (3.5-5.1)
[2021-09-27 08:47] LABS: Albumin Globulin Ratio 1.1 (0.9-2); Albumin Level 3.2 gm/dl (3.4-5.0); Bilirubin,Total 0.5 mg/dl (0.2-1.0); Globulin 2.8 gm/dl (2.5-4.0)
[2021-09-27] MEDS ORDERED: FOSAPREPITANT DIMEGLUMINE 150 MG in SODIUM CHLORIDE 0.9% 145 ML IV ONE ×2 (08:51→09:15)
--- NOTE | 2021-09-27 08:58 | Gastroenterology Progress Note ---
Date of Service September 27, 2021 Assessment & Plan (1) Esophageal stenosis: (2) Acute GI bleeding: Plan: Pt is a 66 yo male w esophageal ca s/p XRT and chemo, admitted w GI bleed and dysphagia symptoms. EGD 09/24/2021 showed esophageal ulcer at GE junction, esophageal stenosis, 12.5cm partially covered esophageal stent placed. He reported having nausea and refused lunch yesterday. On eval this AM, noted again spitting up in emesis bag, clear saliva. Said he's been nauseated since prior stent was placed. Mild esophageal pressure (expected with stent placement). Blood ct stable - PPI PO BID - Suspect nausea related to his cancer diagnosis. Will try Emend IV x 1 dose today, then may continue prn anti emetics. Suggest also perhaps palliative care consult for symptoms management - CL diet but NPO if n/v continues. If tolerating diet, advance to [place] diet x 2 days, then follow stent diet (low residue, may print handbook from eso_stent_patient_nutrition.pdf ([employer]) [email or web address].[employer]/content/d [email or web address]/general/gastro- specialty/eso_stent_patient_nutrition.pdf ) Admission and Anticipated Discharge Date Admission Date: September 24, 2021 Supervising Physician Co-Signing Physician Notes Yesterday morning the patient had noted that he was doing well without chest discomfort nor nausea. Yesterday afternoon he began to develop worsening symptoms we were asked to see him this morning for further evaluation. He notes that he is swallowing fairly well and does have some nausea today. Recommendations Upper GI series Transition to an oral PPI Give a dose of Emend please. Subjective Re-evaluated pt this AM as he reported having nausea and not wanting much to eat yesterday afternoon. Pt reports having nausea, spitting up clear saliva in emesis bag. He reports having nausea since prior to esophageal stent placement. He drank some clear liquids this AM. Review of Systems Review of Systems: All systems reviewed & are unremarkable except as noted in HPI & below Physical Exam Constitutional: WD/WN, vitals as above well groomed and cooperative Eyes: PERRL, conjunctivae normal, anicteric sclerae Respiratory: normal respiratory effort, lungs clear to auscultation Cardiovascular: RRR, no murmur, no edema Gastrointestinal (Abdomen): normal bowel sounds, soft, nontender, no hepatosplenomegaly Skin: no rashes, warm and dry no jaundice Psychiatric: A+Ox3, euthymic affect Lymphatic: no lymphedema Results & Data ([facility]) Vital Signs (Past 12 Hours) Vital Signs Temp Pulse Pulse Resp BP Pulse Ox O2 Del Method 09/27/21 07:48 36.4 C L 99 H 16 143/78 H 94 09/27/21 07:28 89 09/27/21 04:04 36.7 C 109 H 20 165/85 H 96 Room Air 09/27/21 02:50 96 H 09/26/21 23:54 36.7 C 95 H 20 152/85 H 95 Room Air
[2021-09-27] MEDS ORDERED: PANTOprazole 40 MG TAB PO SCH (09:00)
[2021-09-27] MEDS: PANTOprazole 40 MG in SYRINGE 0 ML IV SCH ×2 (11:27→20:44)
--- NOTE | 2021-09-27 16:14 | Hospitalist Progress Note ---
Date of Service September 27, 2021 Assessment & Plan (1) Malignant neoplasm of lower third of esophagus: Plan: Status post chemoradiation finished in May-supposed to have a PET scan done in last Sunday09/19/2021 CT scan of the abdomen and pelvis and CT of the chest: ::1. Interval placement of a distal esophageal stent which extends into the proximal stomach. This appears in good position and is patent. No evidence for esophageal perforation. This traverses the gastroesophageal mass. 2. Redemonstration of the hepatic hypodense lesions and mild gastrohepatic lymphadenopathy. This likely represents metastatic disease. 3. Mild infiltration surrounding the body and tail the pancreas, unchanged. This could represent a mild acute pancreatitis or reactive to the adjacent gastric wall thickening. Recommend correlation with pancreatic enzymes. EGD did not show severe stenosis of the lower esophagus Status post stent placement on 09/24/2021 Initially was tolerating clears orally but later on developed uncontrolled nausea and vomiting Has been getting Zofran and Phenergan and GI reevaluation was performed Started with intravenous Ament and the condition was improving Discussed with the patient and the in detail, discussed the cause of ongoing nausea and vomiting Combination of cancer with a spread, gastritis and esophagitis, esophageal stent and chemotherapeutic drugs Appreciate his speech evaluation and recommendation-will need barium swallow before restarting any food orally (2) Syncope and collapse: Plan: Admitted with syncopal episode with bleeding per rectum with blood and red clots Hemoglobin remained stable at 9.2 No more bleeding and/or syncope in the hospital Status post EGD and large esophageal ulcer partially covered with stent and the bleeding stopped No more syncope but remains generally very weak (3) Acute GI bleeding: Plan: History of malignant neoplasm of the lower third of esophagus Admitted with the acute GI bleed Status post EGD with control of acute bleeding Hemoglobin remains stable-hemoglobin 8.2 as of 09/26/2021 Continue twice daily PPI- No more evidence of GI bleeding-globin remains reasonably stable (4) Type 2 diabetes mellitus: Plan: We will continue with SSI (5) Hypertension: Plan: Blood pressure is controlled Plan DVT prophylaxis SCDs CODE STATUS DNI DNR Discussed with the and the patient in detail Admission and Anticipated Discharge Date Admission Date: September 24, 2021 Subjective 09/25/2021 The patient was seen and examined in telemetry unit in presence of the He is a status post esophageal stent placement on 09/24/2021 Complains to have some pain and nausea Denies any other significant symptoms 09/26/2021 The patient was seen and examined in telemetry unit He remained stable but generally very weak and lethargic Continues to have nausea The pain seems to be controlled 09/27/2021 The patient was seen and examined in telemetry unit He complains to have ongoing nausea and vomiting Minimal pain in the chest No fever and or chills and has not been tolerating any clears Review of Systems Review of Systems: All systems reviewed and are unremarkable except as noted below Gastrointestinal: Ongoing nausea and vomiting. Profuse secretions in the oropharynx area Physical Exam Physical Exam: Lying in bed with minimal distress due to ongoing nausea Constitutional: + ill appearing and average body habitus Eyes: PERRL, conjunctivae normal, anicteric sclerae ENMT: external ear and nose normal, oropharynx normal Neck: trachea midline, no thyromegaly Respiratory: no respiratory distress Auscultation: lungs clear to auscultation bilaterally Cardiovascular: Rate/Rhythm: regular rate and regular rhythm; not tachycardic Heart Sounds: normal S1 and normal S2; no murmur Extremities: no edema Gastrointestinal (Abdomen): Inspection/Auscultation: normal bowel sounds; abdomen not distended Percussion/Palpation: abdomen soft; abdomen nontender Musculoskeletal: No acute arthritis in any joint Neurologic: Alert and awake. Generally very weak and distressed Lymphatic: no cervical or axillary lymphadenopathy Results & Data Results & Data ([facility]) Vital Signs (Past 12 Hours) Vital Signs Temp Pulse Pulse Resp BP Pulse Ox O2 Del Method 09/27/21 11:16 36.8 C 83 18 148/71 H 98 Room Air 09/27/21 07:48 36.4 C L 99 H 16 143/78 H 94 09/27/21 07:28 89 Laboratory Results Short CBC 09/27/21 Range/Units 07:53 WBC 11.14 H (4.8-10.8) K/ul Hgb 8.4 L (14.0-18.0) g/dl Hct 26.1 L (40.1-51.0) % Plt Count 260 (130-400) K/uL BMP 09/27/21 07:53 Sodium 140 Potassium 3.2 L Chloride 105 Carbon Dioxide 28 BUN 8 Creatinine 0.68 Glucose 125 H Calcium 8.9 Liver Function 09/27/21 Range/Units 07:53 Total Bilirubin 0.5 (0.2-1.0) mg/dl AST 13 (13-39) U/L ALT 12 (7-52) U/L Alkaline Phosphatase 58 (34-104) U/L Albumin 3.2 L (3.4-5.0) gm/dl Medications Administered Current Inpatient Medications Acetaminophen (Acetaminophen 325 Mg Tab) 650 mg PO Q4H PRN PRN Reason: Pain or Fever Stop: 10/24/21 03:33 Dextrose (Dextrose 50% 50 Ml Syringe) 25 - 50 ml IV UD PRN; Protocol PRN Reason: Hypoglycemia Protocol Stop: 10/24/21 03:44 Glucagon (Glucagon For Inj 1 Mg Vial) 1 mg IM UD PRN; Protocol PRN Reason: Hypoglycemia Protocol Stop: 10/24/21 03:44 Glucose (Glucose 40% Gel 15 Gm Tube) 15 - 30 gm PO UD PRN; Protocol PRN Reason: Hypoglycemia Protocol Stop: 10/24/21 03:44 Glucose (Glucose 10 Tab/Tube) 4 - 8 tab PO UD PRN; Protocol PRN Reason: Hypoglycemia Protocol Stop: 10/24/21 03:44 Acetaminophen (Ofirmev) 1,000 mg in 100 mls @ 400 mls/hr IV Q8H PRN; Protocol PRN Reason: Headache Stop: 09/28/21 07:29 Last Infusion: 09/26/21 11:13 Dose: Infused Promethazine HCl 12.5 mg/ (Sodium Chloride) 50.5 mls @ 202 mls/hr IV Q6H PRN PRN Reason: Nausea/Vomiting (second line) Stop: 10/25/21 07:33 Last Infusion: 09/27/21 02:32 Dose: Infused Pantoprazole Sodium 40 mg/ (Syringe) 10 mls @ 5 mls/min IV BID [facility] Stop: 10/27/21 09:44 Last Admin: 09/27/21 11:27 Dose: 5 mls/min Insulin Aspart (Insulin Aspart Per Unit) 0 units SC ACHS MAXI Stop: 10/25/21 11:29 Last Admin: 09/27/21 11:29 Dose: Not Given Metoclopramide HCl (Metoclopramide Hcl Inj 5 Mg/Ml 2 Ml Vial) 10 mg IV Q6H PRN PRN Reason: Nausea Stop: 10/27/21 07:44 Miscellaneous (Carbohydrates For Hypoglycemia ) 15 - 30 gm PO UD PRN PRN Reason: Hypoglycemia Treatment Stop: 10/24/21 03:44 Morphine Sulfate (Morphine Sulfate 2 Mg/Ml Carp) 2 mg IV Q4H PRN PRN Reason: Pain Stop: 10/09/21 12:18 Last Admin: 09/26/21 13:23 Dose: 2 mg Nitroglycerin (Nitroglycerin Sl 0.4 Mg/Tab Tab) 0.4 mg SL UD PRN PRN Reason: Chest Pain Stop: 10/24/21 03:33 Ondansetron HCl (Ondansetron Inj 2 Mg/Ml 2 Ml Vial) 4 mg IV Q6H PRN PRN Reason: Nausea Stop: 10/24/21 03:33 Last Admin: 09/27/21 04:48 Dose: 4 mg
[2021-09-28 08:14] LABS: Basophils # (auto) 0.01 K/uL (0-0.2); Basophils % (auto) 0.1 %; Eosinophils # (auto) 0.05 K/uL (0-0.50); Eosinophils % (auto) 0.5 %; Hematocrit (blood only) 28.2 % (40.1-51.0); Immature Granulocytes # (auto) 0.04 K/uL (0.00-0.02); Immature Granulocytes % (auto) 0.4 %; Lymphocytes # (auto) 0.73 K/uL (1.2-3.4); Lymphocytes % (auto) 7.9 %; Mean Corpuscular Hemoglobin 30.5 pg (25.0-34.0); Mean Corpuscular Hgb Conc 31.9 g/dL (32.0-36.0); Mean Corpuscular Volume 95.6 fL (80.0-100.0); Mean Platelet Volume 9.8 fL (9.4-12.4); Monocytes # (auto) 1.06 K/uL (0.24-0.82); Monocytes % (auto) 11.5 %; Neutrophils # (auto) 7.31 K/uL (1.4-6.5); Neutrophils % (auto) 79.6 %; Platelet Count 293 K/uL (130-400); RDW Coefficient of Variation 15.4 % (11.5-14.5); Red Blood Count 2.95 M/uL (4.63-6.08)
[2021-09-28] MEDS: INSULIN ASPART PER UNIT SC SCH ×2 (08:21→11:55)
[2021-09-28 08:56] LABS: Albumin Globulin Ratio 1.1 (0.9-2); Albumin Level 3.1 gm/dl (3.4-5.0); BUN Creatinine Ratio 17.2 (10-20); Bilirubin,Total 0.5 mg/dl (0.2-1.0); Calcium 8.9 mg/dl (8.5-10.1); Creatinine Clr Calc Pharmacy 112.8 ml/min; Est GFR (African American) 119.9 ml/min; Est GFR (Non-African American) 103.5 ml/min; Globulin 2.8 gm/dl (2.5-4.0); Magnesium 1.8 mg/dl (1.7-2.4); Phosphorus 3.4 mg/dl (2.5-4.9); Potassium 3.1 mmol/L (3.5-5.1); Total Protein 5.9 gm/dl (6.0-8.3)
--- NOTE | 2021-09-28 09:00 | Gastroenterology Progress Note ---
Date of Service September 28, 2021 Assessment & Plan (1) Esophageal stenosis: (2) Acute GI bleeding: Plan: Pt is a 66 yo male w esophageal ca s/p XRT and chemo, admitted w GI bleed and dysphagia symptoms. EGD 09/24/2021 showed esophageal ulcer at GE junction, esophageal stenosis, 12.5cm partially covered esophageal stent placed. Was having nausea, but this is resolved after infusion of Emend IV. Mild esophageal pressure (expected with stent placement) is improving as well. Blood ct stable. He tolerated CL diet this AM. - PPI PO BID - Will cancel barium study - Advanced to FL diet x 2 days, then follow stent diet (low residue, may print handbook from eso_stent_patient_nutrition.pdf ([employer]) [email or web address]_patient_[email or web address] ) - Consider Emend 40mg PO twice weekly to help with nausea, alternatively may also consult Palliative Care for symptoms management in outpt setting. - GI to sign off; pls recall prn Admission and Anticipated Discharge Date Admission Date: September 24, 2021 Supervising Physician Co-Signing Physician Notes I saw and evaluated the patient. He is several days status post esophageal stent placement and now notes that he is starting to swallow spontaneously with mechanical soft diet. Patient's nausea has improved significantly after his dosing of the meds. Present we would recommend advancing his diet as per the [employer] recommendations with an esophageal stent. Patient continues Emend as needed for his treatment of nausea. Please call with any questions or concerns, GI to sign off Subjective Pt reports he feels well today, nausea resolved after Emend infusion. Denies abd pain, n/v, is passing flatus. Would like to get discharged home. Review of Systems Review of Systems: All systems reviewed & are unremarkable except as noted in HPI & below Physical Exam Constitutional: WD/WN, vitals as above well groomed, cooperative and comfortable Eyes: PERRL, conjunctivae normal, anicteric sclerae Respiratory: normal respiratory effort, lungs clear to auscultation Cardiovascular: RRR, no murmur, no edema Gastrointestinal (Abdomen): normal bowel sounds, soft, nontender, no hepatosplenomegaly Skin: no rashes, warm and dry no jaundice Psychiatric: A+Ox3, euthymic affect Lymphatic: no lymphedema Results & Data ([facility]) Vital Signs (Past 12 Hours) Vital Signs Temp Pulse Pulse Resp BP BP Pulse Ox 09/28/21 07:22 37.0 C 93 H 18 148/80 H 99 09/28/21 06:59 76 09/28/21 02:56 37.0 C 73 18 136/76 98 09/28/21 00:35 77 O2 Del Method 09/28/21 07:22 Room Air 09/28/21 06:59 09/28/21 02:56 Room Air 09/28/21 00:35
[2021-09-28] MEDS ORDERED: POTASSIUM CHLORIDE 20 MEQ/15 ML UDC PO STA (09:04)
[2021-09-28] MEDS: PANTOprazole 40 MG in SYRINGE 0 ML IV SCH (09:07)
[2021-09-28 11:21] VITALS: O2SAT 98
[2021-09-28 15:56] VITALS: PULSE 82; TEMP 98.4
--- NOTE | 2021-09-28 16:08 | Discharge Summary ---
Date of Service September 28, 2021 Admission HPI Per Admitting Provider DATE OF ADMISSION: 09/24/2021. CHIEF COMPLAINT: Syncope and GI bleed. 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 The patient states he was going to the bathroom, and in the bathroom he felt dizzy and passed out for a few seconds. He came out and laid on the bed and went to bathroom again and he passed out again for brief moments. No confusion. After that, he had an episode of bowel movement when he initially noticed black and red clot, then after that he had a total of three episodes of watery bloody bowel movements, which prompted him to come to the ER. His hemoglobin is stable at 10.7. He says since he was diagnosed of cancer, he has some epigastric discomfort. He feels his stomach is full easily, not able to eat much. Mostly eats soft food. Denies any chest pain, no shortness of breath, no cough, no headache. Once in a while he gets neck pain, once in a while he gets back pain. No blurred visions, no runny nose, no sore throat. Since his diagnosis of cancer, he has difficulty to burp, difficulty to bring mucous out sometimes. Normal bladder movements. No swelling in the legs. Currently, hemodynamically stable. ALLERGIES: No known drug allergies. PAST MEDICAL HISTORY: As mentioned above. PAST SURGICAL HISTORY: Colonoscopy, EGD, EGD with endoscopic ultrasound, humeral fracture repair, knee arthroscopy, removal of nasal polyps. MEDICATIONS: Currently on empagliflozin 10 mg p.o. daily p.r.n. for hyperglycemia, multivitamin tablet daily. FAMILY HISTORY: Significant for brother had prostate cancer, hypertension; mother has ovarian cancer; father had stroke at the age of 69. SOCIAL HISTORY: , former smoker, smoked half pack a day for 6 years, quit in 2016. Currently, not drinking alcohol. Currently, no drug use. REVIEW OF SYSTEMS: As per HPI. Rest of the review of systems is negative. Admission Exam Per Admitting Provider GENERAL: The patient is of moderate build, not in acute distress. VITAL SIGNS: Temperature afebrile, pulse 93, respiratory rate 17, blood pressure 119/74, oxygen 97% on room air. HEENT: Pupils equal, round, and reactive to light. Oral mucosa moist. NECK: No JVD, no neck masses. CARDIOVASCULAR: S1 and S2 heard. Regular rate and rhythm. No murmur, no gallop. RESPIRATORY SYSTEM: Normal AP diameter. No accessory muscle use. No wheezing, no crackles. ABDOMEN: Soft, bowel sounds present. Mild epigastric discomfort. No guarding, no rigidity, no distention. CENTRAL NERVOUS SYSTEM: Cranial nerves II-XII grossly intact, nonfocal. EXTREMITIES: No edema, no erythema. Principal Diagnosis Malignant neoplasm of lower third of esophagus Syncope and collapse Intractable nausea and vomiting Acute GI bleed Discharge Exam GENERAL: Alert and oriented x3. NAD, on RA. Ill appearing. HEENT: No pallor, no icterus. Pupils equal, round and reactive to light. Oral mucosa moist. NECK: No JVD, no neck masses. HEART: S1 and S2 heard. Regular rate and rhythm. No murmur, no gallop. RESPIRATORY SYSTEM: Normal AP diameter. No accessory muscle use. No wheezing, no crackles. ABDOMEN: Soft, bowel sounds present, nontender, no distention. CENTRAL NERVOUS SYSTEM: No facial droop. Speech is clear. Obeys simple commands. Moves extremities. EXTREMITIES: No edema, no erythema seen. Discharge Data Allergies Allergy/AdvReac Type Severity Reaction Status Date / Time No Known Allergies Allergy Verified 09/23/21 21:53 Consultations 09/24/21 08:00 Consult Gastroenterology Routine Procedures Performed Operation Date: 09/24/21 11:00 Actual Procedures p Esophagogastroduodenoscopy with Placement of Esophageal Stent in OR(Not Applicable) - Alis Fay MD Ordered Studies 09/23/21 22:17 CT Abd and Pelvis [CT abd pelvis wo con] Urgent 09/23/21 22:22 CT Brain [CT head/brain wo con] Urgent 09/24/21 11:50 FL ERCP biliary ductal Routine 09/25/21 17:37 CT chest without contrast [CT chest diagnostic wo con] Stat 09/25/21 17:38 CT abdomen wo con Stat Hospital Course (1) Acute GI bleeding: (2) Malignant neoplasm of lower third of esophagus: Plan Per Dr. Heller's note w/ addendum: (1) Malignant neoplasm of lower third of esophagus: Plan: Status post chemoradiation finished in May-supposed to have a PET scan done in last Sunday09/19/2021 CT scan of the abdomen and pelvis and CT of the chest: ::1. Interval placement of a distal esophageal stent which extends into the proximal stomach. This appears in good position and is patent. No evidence for esophageal perforation. This traverses the gastroesophageal mass. 2. Redemonstration of the hepatic hypodense lesions and mild gastrohepatic lymphadenopathy. This likely represents metastatic disease. 3. Mild infiltration surrounding the body and tail the pancreas, unchanged. This could represent a mild acute pancreatitis or reactive to the adjacent gastric wall thickening. Recommend correlation with pancreatic enzymes. EGD did not show severe stenosis of the lower esophagus Status post stent placement on 09/24/2021 Initially was tolerating clears orally but later on developed uncontrolled nausea and vomiting Has been getting Zofran and Phenergan and GI reevaluation was performed Started with intravenous Ament and the condition was improving Discussed with the patient and the in detail, discussed the cause of ongoing nausea and vomiting Combination of cancer with a spread, gastritis and esophagitis, esophageal stent and chemotherapeutic drugs Appreciate his speech evaluation and recommendation-will need barium swallow before restarting any food orally (2) Syncope and collapse: Plan: Admitted with syncopal episode with bleeding per rectum with blood and red clots Hemoglobin remained stable at 9.2 No more bleeding and/or syncope in the hospital Status post EGD and large esophageal ulcer partially covered with stent and the bleeding stopped No more syncope but remains generally very weak (3) Acute GI bleeding: Plan: History of malignant neoplasm of the lower third of esophagus Admitted with the acute GI bleed Status post EGD with control of acute bleeding Hemoglobin remains stable-hemoglobin 8.2 as of 09/26/2021 Continue twice daily PPI- No more evidence of GI bleeding-globin remains reasonably stable (4) Type 2 diabetes mellitus: Plan: We will continue with SSI (5) Hypertension: Plan: Blood pressure is controlled Plan DVT prophylaxis SCDs CODE STATUS DNI DNR Discussed with the and the patient in detail Addendum 09/28: Patient reports improvement in his cancer related nausea and vomiting after use of Emend and would like to go home. Discussed with gastro, plan to discharge him on Emend once a week for cancer related intractable nausea and vomiting, patient is also being discharged on Zofran as needed. For his acute GI bleeding, he received EGD and treatment, he is being discharged on p.o. pantoprazole. For his cancer related pain, he is being discharged on few days worth of pain medication, patient to reach out with his PCP for ongoing pain management. Patient made aware to follow-up with his cancer doctor as soon as possible upon discharge. Patient hemodynamically stable on the day of discharge. Patient to remain on his strength diet. Following instructions communicated at the point of discharge: Follow-up with your primary care physician within a week time. Follow-up with your outpatient oncologist as soon as possible upon discharge for further discussion and management on your cancer status. GI evaluated you while inpatient, you are being discharged on pantoprazole twice a day, you are supposed to be on stent diet [low residue]. May print handbook fromeso_stent_patient_nutrition.pdf ([employer]) [email or web address] [email or web address]- [email or web address]_stent_patient_[email or web address] ) For your nausea and vomiting, you are being discharged on emend 40 Mg p.o. twice weekly to help with intractable nausea/vomiting. If you wish, I you can get in touch with your PCP for possible palliative care consult as an outpatient for your symptom management. For your severe pain, you are being discharged with few days worth of Percocet, you can use [id number] Tylenol for mild pain. Get in touch with your primary care office if your pain continues to worsen or you need ongoing pain management prescription. Get your blood work CBC and CMP done in a week time and have the results forwarded to your primary care physician. Contact your primary care office to set up the test. Take your medications as prescribed. Total Time Total Time Spent Total Time Spent (In Minutes): 40 Discharge Plan Discharge Items Patient Disposition: Home - Self-Care Reason For Visit: SYNCOPE, GI BLEED Discharge Diagnosis: Malignant neoplasm of lower third of esophagus Intractable nausea and vomiting Syncope and collapse Acute GI bleeding Activity: Resume your previous activity Non-emergency contact: Primary Care Provider Call non-emergency contact if: you have any medication questions, your symptoms worsen and your temperature is above 101 Follow-up/Referrals: Zac Bonilla, DO [Primary Care Provider] - (Date & Time 10/04/2021 11:40 AM Provider RUDI Joyner Department [facility] ) Diet: Other - See Diet Comment Diet Comment: Stent Diet Addtl Attending Provider Instructions: Follow-up with your primary care physician within a week time. Follow-up with your outpatient oncologist as soon as possible upon discharge for further discussion and management on your cancer status. GI evaluated you while inpatient, you are being discharged on pantoprazole twice a day, you are supposed to be on stent diet [low residue]. May print handbook fromeso_stent_patient_nutrition.pdf ([employer]) [email or web address]/content/[email or web address]/[email or web address] o-[email or web address]/eso_stent_patient_nutrition.[email or web address] ) For your nausea and vomiting, you are being discharged on emend 40 Mg p.o. twice weekly to help with intractable nausea/vomiting. If you wish, I you can get in touch with your PCP for possible palliative care consult as an outpatient for your symptom management. For your severe pain, you are being discharged with few days worth of Percocet, you can use [id number] Tylenol for mild pain. Get in touch with your primary care office if your pain continues to worsen or you need ongoing pain management prescription. Get your blood work CBC and CMP done in a week time and have the results forwarded to your primary care physician. Contact your primary care office to set up the test. Take your medications as prescribed. Pending Studies at Discharge: No Stand-Alone Forms: My [facility] after[employer]OT, Smoking Cessation Medications and DC Order Prescriptions: New pantoprazole 40 mg Tablet,Delayed Release (Dr/Ec) 40 mg PO BID Qty: 60 0RF oxycodone-acetaminophen [Percocet] 5-325 mg tablet 1 tab PO Q8H PRN (Reason: pain (scale score 7-10)) 5 Days Qty: 15 0RF aprepitant [Emend] 80 mg capsule 80 mg PO .qweek 28 Days Qty: 4 0RF Rx Instructions: Weekly for intractable cancer related nausea/vomiting. ondansetron 4 mg tablet,disintegrating 4 mg PO Q8H PRN (Reason: nausea and vomiting) Qty: 60 0RF Continued Jardiance 10 mg tablet 10 mg PO DAILY PRN (Reason: Hyperglycemia) Rx Instructions: pt holds for normal blood sugars multivitamin Tablet 1 tab PO DAILY Discharge Orders: Discharge Order (Routine); Ordered 09/28/21 Ordered By: Erika Goodman Admission Data Admit Date/Time: 09/24/21 02:47 Attending Provider: Erika Goodman Admit Provider: Cornelius Godinez Primary Care Provider: Zac Bonilla Other Providers: Eden King
[2021-09-28 16:09] VITALS: BP 136/76
[2021-09-28] MEDS ORDERED: PANTOprazole 40 MG TAB PO SCH (21:00)
== END 2021-09-28 16:32 | disposition home or self-care (01) | DRG 374 ==
LOC: ED 20:19 → SUATTDRO 09-24 02:47 → EDINP 09-24 02:47 → 2S 09-24 03:58